=== PATIENT | female | born 1950 | race Caucasian/White ===

== ENCOUNTER 2017-03-29 23:43 | Inpatient (IN) | payer MEDICARE, MEDICAID ==
[~2017-03-29] VITALS: Ht 170.2 cm; Wt 86.2 kg
[~2017-03-29 23:43] MED LIST: AMLO10TA4 PO; CIPR500T6 PO; DOXY100C14 PO; ESOM40CA25 PO; INSU100V13 SQ; LIDO700A4 TP; LISI-334 PO; METF-620 PO
[2017-03-30] MEDS ORDERED: HYDR-971 PO (01:25)
[2017-03-30] MEDS ORDERED: CEPH-264 PO (01:25)
--- NOTE | 2017-03-30 01:25 | PHYS DOC ---
Past Medical History Past Medical History: Diabetes-Type II, GERD, Hypertension, Other Additional Past Medical Histor: heart murmur; seasonal allergies Past Surgical History: Hysterectomy, Other Additional Past Surgical Histo: left foot for DM ulcer. Alcohol Use: None Drug Use: None Adult General Chief Complaint Chief Complaint: FACE PROBLEM HPI HPI Patient is a 66 year old female who presents here today secondary to pain to the left side her face. Patient has a history significant for hypertension diabetes and chronic renal insufficiency. Patient reports that she started having pain to the left side of her face a couple days ago and she thought was secondary to eating too much.. She reports that she'll think that is the cause now because it is fire tender hurts and not getting any better. Patient denies any fevers shakes chills nausea vomiting diarrhea chest pain or shortness of breath. Patient denies any change in vision although she reports she is legally blind. Patient reports she has some pain to her left upper teeth and her incisor region. Patient denies any other symptomatology at this time. Patient's physical exam is remarkable for some mild soft tissue swelling to the left infraorbital/cheek. Patient pupils are equally round and reactive to light extraocular motions were intact. Patient does have dental tenderness in her left upper canine teeth. Patient has diffuse poor dentition. Patient has no molar abscess that palpable. Patient has no gum edema or swelling that is appreciable. Patient does have tenderness to palpation to her sinuses. Assessment and plan this is a 66-year-old female who presents to the ER today secondary to pain to her left cheeks. Patient has tenderness palpation with mild erythema in that area. I suspect this is likely odontogenic in origin. Patient will be started on Keflex and given some pain medicines to assist her. Patient was given a shot of Ancef here in the ER and Dilaudid to initiate her therapy. Patient be discharged home with strict instructions to follow-up with her primary care physician within the next 12-24 hours and to return the ER if she worsens in any way. Review of Systems Review of Systems Constitutional: Denies fever or chills [] Eyes: Denies change in visual acuity, redness, or eye pain [] HENT: Denies nasal congestion or sore throat [] All other review systems are negative except as documented in the history of present illness portion. Current Medications Current Medications Current Medications Medications (Trade) Dose Ordered Sig/Roshan Start Time Stop Time Status Last Admin Dose Admin Cefazolin Sodium (Ancef Im) 1 gm 1X ONCE 03/30/17 02:00 03/30/17 02:01 DC 03/30/17 01:30 1 GM Hydromorphone HCl (Dilaudid) 1 mg 1X ONCE 03/30/17 02:00 03/30/17 02:01 DC 03/30/17 01:29 1 MG Metoclopramide HCl (Reglan) 10 mg 1X ONCE 03/30/17 04:00 03/30/17 04:01 DC 03/30/17 03:25 10 MG Ondansetron HCl (Zofran Odt) 4 mg 1X ONCE 03/30/17 02:30 03/30/17 02:31 DC 03/30/17 02:13 4 MG Ondansetron HCl (Zofran) 4 mg 1X ONCE 03/30/17 05:15 03/30/17 05:16 DC 03/30/17 04:55 4 MG Sodium Chloride 1,000 ml @ 1,000 mls/hr 1X ONCE 03/30/17 04:00 03/30/17 04:59 DC 03/30/17 03:22 1,000 MLS/HR Allergies Allergies Allergies Coded Allergies Type Severity Reaction Last Updated Verified Sulfa (Sulfonamide Antibiotics) Adverse Reaction Intermediate vomiting 07/21/14 No Physical Exam Physical Exam Constitutional: Well developed, well nourished, no acute distress, non-toxic appearance. [] HENT: Normocephalic, atraumatic, bilateral external ears normal, oropharynx moist, no oral exudates, nose normal. See above. [] Eyes: PERRLA, EOMI, conjunctiva normal, no discharge. No periorbital erythema or evidence of periorbital cellulitis. [] Neck: Normal range of motion, no tenderness, supple, no stridor. [] Cardiovascular:Heart rate regular rhythm, no murmur [] Lungs & Thorax: Bilateral breath sounds clear to auscultation [] Abdomen: Bowel sounds normal, soft, no tenderness, no masses, no pulsatile masses. [] Skin: Warm, dry, no erythema, no rash. [] Back: No tenderness, no CVA tenderness. [] Extremities: No tenderness, no cyanosis, no clubbing, status post left foot amputation. Neurologic: Alert and oriented X 3, normal motor function, normal sensory function, no focal deficits noted. [] Psychologic: Affect normal, judgement normal, mood normal. [] Current Patient Data Vital Signs Vital Signs Date Time Temp Pulse Resp B/P (MAP) Pulse Ox O2 Delivery O2 Flow Rate FiO2 03/30/17 01:29 16 Room Air 03/30/17 00:04 98.8 87 205/87 (126) 98 98.8 EKG EKG [] Radiology/Procedures Radiology/Procedures [] Course & Med Decision Making Course & Med Decision Making Pertinent Labs and Imaging studies reviewed. (See chart for details) [] This is a 66-year-old female who presents here today with a facial cellulitis and pain. Patient was given Ancef IM as well as Dilaudid to assist her with her pain IM. Patient has been having persistent vomiting for proximal 5 hours since to given the Dilaudid. Patient be given 3 doses of Zofran as well as Reglan still been vomiting.. Given her persistent emesis and need for antibiotics patient will be admitted to the hospital. Dragon Disclaimer Dragon Disclaimer This electronic medical record was generated, in whole or in part, using a voice recognition dictation system. Departure Departure Impression: Primary Impression: Dental abscess Additional Impressions: Facial cellulitis Intractable vomiting Disposition: ADMITTED INPATIENT Admitting Physician: Other (reusch) Condition: STABLE Referrals: ANNALEE SAUCEDO [employer] (PCP) Patient Instructions: Abscessed Tooth, [id number], Cellulitis Scripts Hydrocodone/Apap 5-325 (NORCO 5-325 TABLET) 1 Each Tablet 1 TAB PO QID Y for PAIN, #10 TAB Prov: GURJIT LENNON MD 03/30/17 Cephalexin (KEFLEX) 500 Mg Capsule 500 MG PO QID for 10 Days, CAP Prov: GURJIT LENNON MD 03/30/17 Problem Qualifiers GURJIT LENNON MD March 30, 2017 01:25
[2017-03-30] MEDS ORDERED: ONDANSETRON ODT 4 MG TAB.RAPDIS. PO ONE ×2 (01:30→02:30)
[2017-03-30] MEDS ORDERED: ceFAZolin IM 1 GM VIAL IM ONE (02:00)
[2017-03-30] MEDS ORDERED: HYDROmorphone 2 MG/ML VIAL IM ONE (02:00)
[2017-03-30] MEDS ORDERED: IV NORMAL SALINE 1000ML BAG 1,000 ML IV ONE (04:00)
[2017-03-30] MEDS ORDERED: METOCLOPRAMIDE HCL 10 MG/2 ML VIAL. IV ONE (04:00)
[2017-03-30] MEDS ORDERED: ONDANSETRON PF 4 MG/2 ML VIAL. IV ONE (05:15)
[2017-03-30] MEDS ORDERED: IV NORMAL SALINE 1000ML BAG 1,000 ML IV SCH (05:36)
[2017-03-30] MEDS ORDERED: ONDANSETRON PF 4 MG/2 ML VIAL. IV PRN ×2 (05:45→08:15)
--- NOTE | 2017-03-30 06:23 | ACF ---
Admission Forms Criteria CELLULITIS Clinical Indications for Admission to Inpatient Care (Place 'X' for any and all applicable criteria): Admission is indicated for ANY ONE of the following(1)(2)(3)(4)(5): [ ]I. Limb-threatening infection [ ]II. High-risk comorbid condition as indicated by ANY ONE of the following: [ ]a) Uncontrolled diabetes (eg, HbA1c greater than 10% (0.1)) [ ]b) Cirrhosis [ ]c) Neutropenia [ ]d) Asplenia [ ]e) Immunosuppression [ ]f) Symptomatic heart failure [X]III. Failure of outpatient therapy as indicated by ALL of the following: [X]a) Progression or no improvement after adequate trial (minimum of 48 hours, with longer period for stable lower extremity infection) [ X]b) Adequate antibiotic regimen as indicated by use of ANY ONE of the following: [X]i) First-generation cephalosporin (e.g., cephalexin) [ ]ii) Antistaphylococcal penicillin (e.g., dicloxacillin) [ ]iii) Penicillin-allergic patient regimen (clindamycin, extended-spectrum fluoroquinolone, or doxycycline) [ ]iv) Resistant organism (eg, methicillin-resistant Staphylococcus aureus) regimen (6) [X]c) Outpatient intravenous therapy regimen is not appropriate due to ANY ONE of the following. (7)(8)(9)(10): [ ]i) It was tried and was not successful (eg, progression of infection). [X]ii) It is not available or cannot be arranged in a clinically appropriate time frame (e.g., the next day). [ ]iii) Clinical presentation (eg, acuity of infection, rapidity of progression, confirmed or suspected bacteremia) is judged to require ALL of the following: [ ]1) Immediate initiation of intravenous therapy ( eg, cannot wait for next day) [ ]2) Intensity of patient monitoring and observation (eg, vital sign measurement, checks for infection progression) that cannot be provided at other than inpatient level of care [ ]IV. Mental status changes [ ]V. Bacteremia [ ]. Hemodynamic instability [ ]VII. Suspected necrotizing soft tissue infection (e.g., gas in tissue)(11)( 12) [ ]VIII. Orbital infection (13)(14) [ ]IX. Associated surgical procedure (e.g., abscess drainage, debridement) not amenable to outpatient, emergency department, or observation care [ ]X. Cutaneous gangrene [ ]XI. High fever (temperature greater than 39.5 degrees C (103.1 degrees F) (oral)) not responsive to outpatient, emergency department, or observation care therapy [ ]XIII. Inpatient admission required rather than observation care (Also use Cellulitis: Observation Care as appropriate) because of ANY ONE of the following : [ ]a) Periorbital or perineal infection that is severe or worsening [ ]b) Severe pain requiring acute inpatient management [ ]c) IV fluid to replace significant ongoing (e.g., for over 24 hours) losses (greater than 3L/m2 per day) [ ]d) Compartment syndrome monitoring (17) [ ]e) Strict or protective (eg, laminar flow) isolation [ ]f) Urgent debridement or skin grafting [ ]g) Bone or joint debridement [ ]h) Immediate inpatient surgery [ ]i) Other condition, treatment or monitoring requiring inpatient admission Extended stay beyond goal length of stay may be needed for (1)(18): [ ]a) Necrotizing soft tissue infection or fasciitis [ ]b) Gram-negative infection [ ]c) Methicillin-resistant Staphylococcal aureus (MRSA) infection [ ]d) Peripheral venous insufficiency with cellulitis [ ]e) Extensive edema [ ]f) Sepsis or continued Hemodynamic instability [ ]g) Continued high fever or mental status change [ ]h) Bacteremia [ ]i) Active serious comorbid conditions ( eg, heart failure, renal insufficiency) The original [email or web address] content created by [employer] [email or web address] has been revised. The portions of the content which have been revised are identified through the use of italic text or in bold, and [facility] has neither reviewed nor approved the modified material. All other unmodified content is copyright [facility] Please see references footnoted in the original [facility] [employer] edition 2016 Admission Criteria Met?: Yes FERN WOODS March 30, 2017 06:23
[2017-03-30 06:28] VITALS: BP 229/124
[2017-03-30] MEDS ORDERED: amLODIPine BESYLATE 5 MG TABLET PO ONE (06:30)
[2017-03-30] MEDS ORDERED: LISINOPRIL 10 MG TABLET PO ONE (06:30)
[2017-03-30 07:00] VITALS: BP 147/88
[2017-03-30] MEDS ORDERED: diphenhydrAMINE 50 MG/ML VIAL IVP ONE (07:00)
[2017-03-30] MEDS ORDERED: hydrALAZINE 20 MG/ML VIAL. IVP ONE (07:00)
[2017-03-30] MEDS ORDERED: PROCHLORPERAZINE 10 MG/2 ML VIAL. IV ONE (07:00)
--- NOTE | 2017-03-30 08:10 | PDOC1 ---
History and Physical Date of Admission Date of Admission DATE: 03/30/17 TIME: 08:10 Identification/Chief Complaint Chief Complaint facial swelling Problems: Source Source: Chart review, Patient History of Present Illness History of Present Illness Ms. Bauer, is a 66 year old female admit for cellulitis and pain to the left side her face. That appears much improved this AM but she is nauseated and is vomiting too much to even talk to me early this AM, Patient has a history significant for hypertension diabetes and chronic renal insufficiency. She started having pain to the left side of her face a couple days ago and she thought was secondary to eating too much. She had some teeth pain the is now improved, 2/10 left nostril still red and tender, but swelling of face is almost resolve,d minor pain she is legally blind in the left eye. Past Medical History Cardiovascular: HTN Renal/: Chronic renal insuff Endocrine: Diabetes Past Surgical History Past Surgical History: Hysterectomy Family History Family History: Hypertension Social History Smoke: No ALCOHOL: none Drugs: None Current Problem List Problem List Problems Medical Problems: (1) Dental abscess Status: Acute (2) Facial cellulitis Status: Acute (3) Intractable vomiting Status: Acute Problems: Current Medications Current Medications Current Medications Cefazolin Sodium (Ancef Im) 1 gm 1X ONCE IM Last administered on 03/30/17 01: 30; Start 03/30/17 at 02:00; Stop 03/30/17 at 02:01; Status DC Hydromorphone HCl (Dilaudid) 1 mg 1X ONCE IM Last administered on 03/30/17 01 :29; Start 03/30/17 at 02:00; Stop 03/30/17 at 02:01; Status DC Ondansetron HCl (Zofran Odt) 4 mg 1X ONCE PO Last administered on 03/30/17 01 :29; Start 03/30/17 at 01:30; Stop 03/30/17 at 01:31; Status DC Ondansetron HCl (Zofran Odt) 4 mg 1X ONCE PO Last administered on 03/30/17 02 :13; Start 03/30/17 at 02:30; Stop 03/30/17 at 02:31; Status DC Metoclopramide HCl (Reglan) 10 mg 1X ONCE IV Last administered on 03/30/17 03 :25; Start 03/30/17 at 04:00; Stop 03/30/17 at 04:01; Status DC Sodium Chloride 1,000 ml @ 1,000 mls/hr 1X ONCE IV Last administered on 03:22; Start 03/30/17 at 04:00; Stop 03/30/17 at 04:59; Status DC Ondansetron HCl (Zofran) 4 mg 1X ONCE IV Last administered on 03/30/17 04:55 ; Start 03/30/17 at 05:15; Stop 03/30/17 at 05:16; Status DC Ondansetron HCl (Zofran) 4 mg PRN Q4HRS PRN IV NAUSEA/VOMITING; Start 03/30/17 at 05:45; Stop 03/31/17 at 05:44 Sodium Chloride 1,000 ml @ 100 mls/hr Q10H IV Last administered on 03/30/17 07:27; Start 03/30/17 at 05:36; Stop 03/31/17 at 05:35 Cefazolin Sodium 1 gm/Sodium Chloride 50 ml @ 100 mls/hr Q8HRS IV Last administered on 03/30/17 07:26; Start 03/30/17 at 06:00 Amlodipine Besylate (Norvasc) 10 mg 1X ONCE PO ; Start 03/30/17 at 06:30; Stop 03/30/17 at 06:31; Status DC Lisinopril (Prinivil) 20 mg 1X ONCE PO ; Start 03/30/17 at 06:30; Stop at 06:31; Status DC Hydralazine HCl (Apresoline) 5 mg 1X ONCE IVP ; Start 03/30/17 at 07:00; Stop 03/30/17 at 07:01; Status DC Diphenhydramine HCl (Benadryl) 25 mg 1X ONCE IVP ; Start 03/30/17 at 07:00; Stop 03/30/17 at 07:01; Status DC Prochlorperazine Edisylate (Compazine) 10 mg 1X ONCE IV ; Start 03/30/17 at 07: 00; Stop 03/30/17 at 07:01; Status DC Active Scripts Active [place] 5-325 Tablet (Acetaminophen/Hydrocodone Bitart) 1 Each Tablet 1 Tab PO QID PRN Keflex (Cephalexin) 500 Mg Capsule 500 Mg PO QID 10 Days Reported Ciprofloxacin Er 500 Mg Tablet (Ciprofloxacin/Ciprofloxa Hcl) 500 Mg Tbmp.24hr 500 Mg PO BID Lidoderm (Lidocaine) 700 Mg Adh..patch 1 Patch TP DAILY Doxycycline Monohydrate 100 Mg Capsule 100 Mg PO Norvasc (Amlodipine Besylate) 10 Mg Tablet 1 Tab PO DAILY Lisinopril 20 Mg Tablet 1 Tab PO DAILY Metformin Hcl 1,000 Mg Tablet 1 Tab PO BID Esomeprazole Capsule (Esomeprazole Strontium) 40 Mg Capsule.dr 40 Mg PO DAILYAC Levemir (Insulin Detemir) 100 Unit/1 Ml Vial 45 Unit SQ Allergies Allergies: Coded Allergies: Sulfa (Sulfonamide Antibiotics) (Unverified Adverse Reaction, Intermediate , vomiting, 07/21/14) ROS General: YES: Fatigue, Malaise, Appetite, No: Chills, Night Sweats, Other PSYCHOLOGICAL ROS: No: Anxiety, Behavioral Disorder, Concentration difficultie , Decreased libido, Depression, Disorientation, Hallucinations, Hostility, Irritablity, Memory difficulties, Mood Swings, Obsessive thoughts, Physical abuse, Sexual abuse, Sleep disturbances, Suicidal ideation, Other Eyes: Yes Decreased vision, Yes Uses contacts, No Blurry vision, No Double vision, No Dry eyes, No Excessive tearing, No Eye Pain, No Itchy Eyes, No Loss of vision, No Photophobia, No Scotomata, No Uses glasses, No Other HEENT: YES: Heacaches, Nasal congestion, Sinus pain, No: Visual Changes, Hearing change, Nasal discharge, Oral lesions, Sore Throat, Epistaxis, Sneezing, Snoring, Tinnitus, Vertigo, Vocal changes, Other Respiratory: No: Cough, Hemoptysis, Orthopnea, Pleuritic Pain, Shortness of breath, SOB with excertion, Sputum Changes, Stridor, Tachypnea, Wheezing, Other Cardiovascular: No Chest Pain, No Palpitations, No Orthopnea, No Paroxysmal Noc. Dyspnea, No Edema, No Lt Headedness, No Other Gastrointestinal: Yes Nausea, Yes Vomiting, Yes Abdominal Pain Genitourinary: No Dysuria, No Frequency, No Incontinence, No Hematuria, No Retention, No Discharge, No Urgency, No Pain, No Flank Pain, No Other, No , No , No , No , No , No , No Musculoskeletal: No Gait Disturbance, No Joint Pain, No Joint Stiffness, No Joint Swelling, No Muscle Pain, No Muscular Weakness, No Pain In:, No Swelling In:, No Other Neurological: No Behavorial Changes, No Bowel/Bladder ControlChng, No Confusion , No Dizziness, No Gait Disturbance, No Headaches, No Impaired Coord/balance, No Memory Loss, No Numbness/Tingling, No Seizures, No Speech Problems, No Tremors, No Visual Changes, No Weakness, No Other Skin: No Dry Skin, No Eczema, No Hair Changes, No Lumps, No Mole Changes, No Mottling, No Nail Changes, No Pruritus, No Rash, No Skin Lesion Changes, No Other, No Acne Physical Exam Physical Exam Patient's physical exam was remarkable for some mild soft tissue swelling to the left infraorbital/cheek. General: Alert, Oriented X3, Cooperative, mild distress HEENT: Atraumatic, EOMI, Other (dry) Lungs: Clear to auscultation, Normal air movement Abdomen: Normal bowel sounds, Soft Rectal Exam: not examined Extremities: Normal pulses, Other (2+ LE edema) Neuro: Normal speech Psych/Mental Status: Mental status NL Vitals Vitals Vital Signs Date Time Temp Pulse Resp B/P (MAP) Pulse Ox O2 Delivery O2 Flow Rate FiO2 03/30/17 07:00 131 147/88 03/30/17 06:28 97.7 20 96 Room Air 97.7 VTE Prophylaxis Ordered VTE Prophylaxis Devices: No VTE Pharmacological Prophylaxi: Yes Assessment/Plan Assessment/Plan facial cellulitis and sinusitis, much improved overnight with IV cephalosporin , cont nausea and vomiting, dehdration, vasomotor nephropathy on CKD anemia of CKD DM2, poor control, check A1c, FSBS > 400, LE edema, poss. CHF, check echo, renal consulted severe malnutrition, serum albumin 1.7, w/ BMI 30 poss. renal protein loss, check UA, consider 24 hour, renal to follow ZULEYMA BRUCE MD March 30, 2017 08:10
[2017-03-30] MEDS ORDERED: MECLIZINE HCL 12.5 MG TABLET. PO PRN (08:15)
[2017-03-30] MEDS ORDERED: ATOR20TA58 PO (08:28)
[2017-03-30] MEDS ORDERED: MECL12.52 PO (08:28)
[2017-03-30] MEDS ORDERED: CITA20TA5 PO (08:28)
[2017-03-30] MEDS ORDERED: HYDR-2869 PO (08:28)
[2017-03-30] MEDS ORDERED: PRED1DRO OU (08:28)
[2017-03-30] MEDS ORDERED: BRIM5DRO2 OS (08:28)
[2017-03-30] MEDS ORDERED: INSU100V13 SQ (08:28)
[2017-03-30] MEDS ORDERED: METF500T9 PO (08:28)
[2017-03-30] MEDS ORDERED: PREG20SO PO (08:28)
[2017-03-30] MEDS ORDERED: INSU100I17 SQ (08:28)
[2017-03-30] MEDS ORDERED: NITR100C62 PO (08:32)
[2017-03-30] MEDS ORDERED: FURO40TA4 PO (08:32)
[2017-03-30] MEDS ORDERED: metFORMIN XR 500 MG TAB.ER.24H PO SCH (09:00)
[2017-03-30] MEDS: LISINOPRIL 20 MG TABLET PO SCH (09:00)
[2017-03-30] MEDS: amLODIPine BESYLATE 10 MG TABLET PO SCH (09:00)
[2017-03-30 09:15] LABS: BASO # 0.1 x10^3/uL (0.0-0.2); BASO % 1 % (0-3); EOS % 0 % (0-3); HEMATOCRIT 25.6 % (36.0-47.0); HEMOGLOBIN 8.6 g/dL (12.0-15.5); LYMPH # 0.9 x10^3/uL (1.0-4.8); LYMPH % 10 % (24-48); MEAN CORPUSCULAR HEMOGLOBIN 30 pg (25-35); MEAN CORPUSCULAR HGB CONC 34 g/dL (31-37); MEAN CORPUSCULAR VOLUME 89 fL (79-100); MONO % 3 % (0-9); NEUT % 86 % (31-73); PLATELET COUNT 190 x10^3/uL (140-400); RED BLOOD COUNT 2.89 x10^6/uL (3.50-5.40); RED CELL DISTRIBUTION WIDTH 13.6 % (11.5-14.5); WHITE BLOOD COUNT 9.3 x10^3/uL (4.0-11.0)
[2017-03-30] MEDS ORDERED: DEXTROSE 50% 25 GM / 50ML DISP.SYRIN. IV PRN (09:15)
[2017-03-30 09:29] LABS: ALBUMIN 1.7 g/dL (3.4-5.0); ALBUMIN/GLOBULIN RATIO 0.4 (1.0-1.7); CALCIUM 7.6 mg/dL (8.5-10.1); CREATININE 2.5 mg/dL (0.6-1.0); GFR 19.4; POTASSIUM 3.8 mmol/L (3.5-5.1); TOTAL BILIRUBIN 0.2 mg/dL (0.2-1.0); TOTAL PROTEIN 5.6 g/dL (6.4-8.2)
[2017-03-30] MEDS: PREGABALIN 50 MG CAPSULE PO SCH ×2 (09:45→12:13)
[2017-03-30] MEDS: IV NORMAL SALINE 1000ML BAG 1,000 ML IV SCH ×2 (09:49→19:15)
[2017-03-30] MEDS: CITALOPRAM 20 MG TABLET. PO SCH (09:49)
[2017-03-30] MEDS: INSULIN ASPART 300 UNITS/3 ML INSULN.PEN SQ SCH ×4 (10:07→16:30)
--- NOTE | 2017-03-30 10:33 | PDOC ---
Infectious Disease Note ROS ROS Vital Sign Vital Signs Vital Signs Date Time Temp Pulse Resp B/P (MAP) Pulse Ox O2 Delivery O2 Flow Rate FiO2 03/30/17 09:49 131 147/88 03/30/17 07:00 97.3 16 90 Room Air 97.3 Labs Lab Laboratory Tests Test 03/30/17 08:55 03/30/17 09:06 White Blood Count 9.3 x10^3/uL (4.0-11.0) Red Blood Count 2.89 x10^6/uL (3.50-5.40) Hemoglobin 8.6 g/dL (12.0-15.5) Hematocrit 25.6 % (36.0-47.0) Mean Corpuscular Volume 89 fL (79-100) Mean Corpuscular Hemoglobin 30 pg (25-35) Mean Corpuscular Hemoglobin Concent 34 g/dL (31-37) Red Cell Distribution Width 13.6 % (11.5-14.5) Platelet Count 190 x10^3/uL (140-400) Neutrophils (%) (Auto) 86 % (31-73) Lymphocytes (%) (Auto) 10 % (24-48) Monocytes (%) (Auto) 3 % (0-9) Eosinophils (%) (Auto) 0 % (0-3) Basophils (%) (Auto) 1 % (0-3) Neutrophils # (Auto) 8.0 x10^3uL (1.8-7.7) Lymphocytes # (Auto) 0.9 x10^3/uL (1.0-4.8) Monocytes # (Auto) 0.3 x10^3/uL (0.0-1.1) Eosinophils # (Auto) 0.0 x10^3/uL (0.0-0.7) Basophils # (Auto) 0.1 x10^3/uL (0.0-0.2) Sodium Level 140 mmol/L (136-145) Potassium Level 3.8 mmol/L (3.5-5.1) Chloride Level 106 mmol/L (98-107) Carbon Dioxide Level 22 mmol/L (21-32) Anion Gap 12 (6-14) Blood Urea Nitrogen 37 mg/dL (7-20) Creatinine 2.5 mg/dL (0.6-1.0) Estimated GFR (Cockcroft-Gault) 19.4 BUN/Creatinine Ratio 15 (6-20) Glucose Level 446 mg/dL (70-99) Calcium Level 7.6 mg/dL (8.5-10.1) Total Bilirubin 0.2 mg/dL (0.2-1.0) Aspartate Amino Transf (AST/SGOT) 17 U/L (15-37) Alanine Aminotransferase (ALT/SGPT) 14 U/L (14-59) Alkaline Phosphatase 109 U/L (46-116) Total Protein 5.6 g/dL (6.4-8.2) Albumin 1.7 g/dL (3.4-5.0) Albumin/Globulin Ratio 0.4 (1.0-1.7) Glucose (Fingerstick) 425 mg/dL (70-99) Objective Assessment Facial Cellulitis Poor dentition Sinusitis Sulfa allergy CKD DM - not controlled yet but just admitted S/p CVA 2 weeks ago Plan Plan of Care Po Augmentin D/c chronic nitrofurantoin as with CKD it does not achieve adequate levels F/u response/labs # [id number] HAKEEM MEDRANO MD March 30, 2017 10:33
[2017-03-30] MEDS ORDERED: MAGNESIUM SULFATE 2GM 50 ML IV PRN (10:45)
--- NOTE | 2017-03-30 10:57 | PDOC2 ---
CONSULT Date of Consult Date of Consult DATE: 03/30/17 TIME: 10:36 Reason for Consult Reason for Consult: MYAH/ CKD III? Referring Physician Referring Physician: Dr Parks Identification/Chief Complaint Chief Complaint facial swelling and Pain (? Celluliits) Problems: Source Source: Chart review, Patient History of Present Illness Reason for Visit: as dictated Past Medical History Cardiovascular: HTN Renal/: Chronic renal insuff Endocrine: Diabetes Past Surgical History Past Surgical History: Hysterectomy Family History Family History: Hypertension Social History No ALCOHOL: none Drugs: None Lives: with Family Current Problem List Problem List Problems Medical Problems: (1) Dental abscess Status: Acute (2) Facial cellulitis Status: Acute (3) Intractable vomiting Status: Acute Current Medications Current Medications Current Medications Cefazolin Sodium (Ancef Im) 1 gm 1X ONCE IM Last administered on 03/30/17 01: 30; Start 03/30/17 at 02:00; Stop 03/30/17 at 02:01; Status DC Hydromorphone HCl (Dilaudid) 1 mg 1X ONCE IM Last administered on 03/30/17 01 :29; Start 03/30/17 at 02:00; Stop 03/30/17 at 02:01; Status DC Ondansetron HCl (Zofran Odt) 4 mg 1X ONCE PO Last administered on 03/30/17 01 :29; Start 03/30/17 at 01:30; Stop 03/30/17 at 01:31; Status DC Ondansetron HCl (Zofran Odt) 4 mg 1X ONCE PO Last administered on 03/30/17 02 :13; Start 03/30/17 at 02:30; Stop 03/30/17 at 02:31; Status DC Metoclopramide HCl (Reglan) 10 mg 1X ONCE IV Last administered on 03/30/17 03 :25; Start 03/30/17 at 04:00; Stop 03/30/17 at 04:01; Status DC Sodium Chloride 1,000 ml @ 1,000 mls/hr 1X ONCE IV Last administered on 03:22; Start 03/30/17 at 04:00; Stop 03/30/17 at 04:59; Status DC Ondansetron HCl (Zofran) 4 mg 1X ONCE IV Last administered on 03/30/17 04:55 ; Start 03/30/17 at 05:15; Stop 03/30/17 at 05:16; Status DC Ondansetron HCl (Zofran) 4 mg PRN Q4HRS PRN IV NAUSEA/VOMITING; Start 03/30/17 at 05:45; Stop 03/31/17 at 05:44 Sodium Chloride 1,000 ml @ 100 mls/hr Q10H IV Last administered on 03/30/17 07:27; Start 03/30/17 at 05:36; Stop 03/31/17 at 05:35 Cefazolin Sodium 1 gm/Sodium Chloride 50 ml @ 100 mls/hr Q8HRS IV Last administered on 03/30/17 07:26; Start 03/30/17 at 06:00; Stop 03/30/17 at 10:24 ; Status DC Amlodipine Besylate (Norvasc) 10 mg 1X ONCE PO Last administered on 03/30/17 08:15; Start 03/30/17 at 06:30; Stop 03/30/17 at 06:31; Status DC Lisinopril (Prinivil) 20 mg 1X ONCE PO Last administered on 03/30/17 08:13; Start 03/30/17 at 06:30; Stop 03/30/17 at 06:31; Status DC Hydralazine HCl (Apresoline) 5 mg 1X ONCE IVP ; Start 03/30/17 at 07:00; Stop 03/30/17 at 07:01; Status DC Diphenhydramine HCl (Benadryl) 25 mg 1X ONCE IVP Last administered on 08:16; Start 03/30/17 at 07:00; Stop 03/30/17 at 07:01; Status DC Prochlorperazine Edisylate (Compazine) 10 mg 1X ONCE IV Last administered on 08:15; Start 03/30/17 at 07:00; Stop 03/30/17 at 07:01; Status DC Ondansetron HCl (Zofran) 8 mg PRN Q8HRS PRN IV NAUSEA/VOMITING; Start 03/30/17 at 08:15 Amlodipine Besylate (Norvasc) 10 mg DAILY PO ; Start 03/30/17 at 09:00 Atorvastatin Calcium (Lipitor) 20 mg HS PO ; Start 03/30/17 at 21:00 Citalopram Hydrobromide (CeleXA) 20 mg DAILY PO Last administered on 03/30/17 09:49; Start 03/30/17 at 09:00 Hydralazine HCl (Apresoline) 50 mg TID PO Last administered on 03/30/17 09:49 ; Start 03/30/17 at 09:00 Insulin Aspart (NovoLOG) 12 units TIDAC SQ Last administered on 03/30/17 10:07 ; Start 03/30/17 at 11:30 Lisinopril (Prinivil) 20 mg DAILY PO ; Start 03/30/17 at 09:00 Meclizine HCl (Antivert) 12.5 mg PRN TID PRN PO NAUSEA; Start 03/30/17 at 08:15 Metformin HCl (Glucophage Xr) 500 mg DAILYWBKFT PO ; Start 03/30/17 at 09:00; Stop 03/30/17 at 09:47; Status DC Brimonidine Tartrate (Alphagan) 1 drop BID OS ; Start 03/30/17 at 10:00 Insulin Detemir (Levemir) 24 units QHS SQ ; Start 03/30/17 at 21:00 Dexamethasone (Maxidex) 1 drop PRN QID PRN OU Swollen eyes; Start 03/30/17 at 10:00 Pregabalin (Lyrica) 100 mg BID PO Last administered on 03/30/17 09:45; Start 03/30/17 at 09:00 Sodium Chloride 1,000 ml @ 100 mls/hr Q10H IV Last administered on 03/30/17 09:49; Start 03/30/17 at 09:15 Insulin Aspart (NovoLOG) 0-9 UNITS TIDWMEALS SQ Last administered on 03/30/17 10:08; Start 03/30/17 at 12:00 Dextrose (Dextrose 50%-Water Syringe) 12.5 gm PRN Q15MIN PRN IV SEE COMMENTS; Start 03/30/17 at 09:15 Enoxaparin Sodium (Lovenox Per Pharmacy Prophylaxis Dosing) 1 each PRN DAILY PRN MC SEE COMMENTS; Start 03/30/17 at 10:00 Timolol Maleate (Timoptic 0.5% [facility]) 1 drop BID OS ; Start 03/30/17 at 10:00 Enoxaparin Sodium (Lovenox 30mg Syringe) 30 mg Q24H SQ ; Start 03/30/17 at 11:00 Amoxicillin/ Clavulanate Potassium (Augmentin 500/ 125mg) 1 tab BID PO ; Start 03/30/17 at 11:00 Active Scripts Active [place] 5-325 Tablet (Acetaminophen/Hydrocodone Bitart) 1 Each Tablet 1 Tab PO QID PRN Keflex (Cephalexin) 500 Mg Capsule 500 Mg PO QID 10 Days Reported Furosemide 40 Mg Tablet 40 Mg PO DAILY Macrobid 100 Mg Capsule (Nitrofurantoin Monohyd/M-Cryst) 100 Mg Capsule 100 Mg PO HS Lyrica (Pregabalin) 20 Mg/1 Ml Solution 100 Mg PO BID 30 Days Metformin Hcl Er (Metformin Hcl) 500 Mg Tab.er.24h 500 Mg PO DAILYWBKFT Combigan Eye Drops (Brimonidine Tartrate/Timolol) 5 Ml Drops 5 Ml OS BID Hydralazine Hcl 50 Mg Tablet 1 Tab PO TID Citalopram Hbr (Citalopram Hydrobromide) 20 Mg Tablet 1 Tab PO DAILY Pred Forte (Prednisolone Acetate) 1 Ml Drops.susp 1 Drop OU QID PRN Novolog Flexpen (Insulin Aspart) 100 Unit/1 Ml Insuln.pen 12 Unit SQ TIDAC Meclizine Hcl 12.5 Mg Tablet 1 Tab PO TID PRN Atorvastatin Calcium 20 Mg Tablet 20 Mg PO HS Levemir (Insulin Detemir) 100 Unit/1 Ml Vial 24 Unit SQ HS Norvasc (Amlodipine Besylate) 10 Mg Tablet 1 Tab PO DAILY Lisinopril 20 Mg Tablet 1 Tab PO DAILY Allergies Allergies: Coded Allergies: Sulfa (Sulfonamide Antibiotics) (Unverified Adverse Reaction, Intermediate , vomiting, 07/21/14) ROS Review of System GEN: no Fevers no Chills EYES: no new Visual Complaints (legally blind) ENT: no EN Drainage no Hearing deficiets + Facial Pain CVS: no Orthopnea no CP RESP: no SOB no PETER GI: min Nausea (currently) + Vomiting : no Dysuria no Urgency HEME: no easy bruising no Palp Ly Nodes NEURO no Focal Weakness no Sz PSYCH: no Suicidal Ideation + Depression SKIN: no Rashes ENDO: no Polyuria or Polydipsia no Hot/Cold Intolerance MU SK: no Arthraigia no Myalgia Physical Exam Physical Exam General Appearance: Awake Alert Oriented x 3 In no Distress Eyes: Ch Blindness (legal) Conjunctiva Normal EN: No EN Drainage Mucous Memb. moist Neck: no JVD min JVP Supple no Thyromegaly CVS: S1 S2 + Murmur No Gallop No Rub +2 Edema Resp: no Rales no Rhonchi no Acc. Muscle use GI: BAS +ve NO Bruit Non Tender Non Distended; Obese : no CVA tenderness; no Suprapubic Tenderness SKIN: no visible Rashes Breast Exam deferred Mu.Sk: Adequate ROM no Muscle Atrophy Heme: Unable to palpate Obvious LAD no palp Splenomegaly NEURO: Good Strength and Tone Cranial Nerves II - XII grossly intact Psych: + Depressed no Active hallucination Vital Signs Vital Signs Date Time Temp Pulse Resp B/P (MAP) Pulse Ox O2 Delivery O2 Flow Rate FiO2 03/30/17 09:49 131 147/88 03/30/17 07:00 97.3 16 90 Room Air 97.3 Assessment & Plan MYAH - ? due to infection and or due to recent NSAID use for facial pain. Current FLuid and E-lyte status does not necessitate emergent need for Dialysis. 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 for hgb < 7 sev HTN: (OA) - now better controlled. Current BP meds reviewed. See orders for changes. Bone & Mineral: Check PTH etc Edema - suspect due to Low Alb, check Hepatitis panel too; ECHO? DM-2 with roasterman insulin use - with DR (high likelihood of DM-2 Nephropathy ) Labs Labs Laboratory Tests Test 03/30/17 08:55 03/30/17 09:06 White Blood Count 9.3 x10^3/uL (4.0-11.0) Red Blood Count 2.89 x10^6/uL (3.50-5.40) Hemoglobin 8.6 g/dL (12.0-15.5) Hematocrit 25.6 % (36.0-47.0) Mean Corpuscular Volume 89 fL (79-100) Mean Corpuscular Hemoglobin 30 pg (25-35) Mean Corpuscular Hemoglobin Concent 34 g/dL (31-37) Red Cell Distribution Width 13.6 % (11.5-14.5) Platelet Count 190 x10^3/uL (140-400) Neutrophils (%) (Auto) 86 % (31-73) Lymphocytes (%) (Auto) 10 % (24-48) Monocytes (%) (Auto) 3 % (0-9) Eosinophils (%) (Auto) 0 % (0-3) Basophils (%) (Auto) 1 % (0-3) Neutrophils # (Auto) 8.0 x10^3uL (1.8-7.7) Lymphocytes # (Auto) 0.9 x10^3/uL (1.0-4.8) Monocytes # (Auto) 0.3 x10^3/uL (0.0-1.1) Eosinophils # (Auto) 0.0 x10^3/uL (0.0-0.7) Basophils # (Auto) 0.1 x10^3/uL (0.0-0.2) Sodium Level 140 mmol/L (136-145) Potassium Level 3.8 mmol/L (3.5-5.1) Chloride Level 106 mmol/L (98-107) Carbon Dioxide Level 22 mmol/L (21-32) Anion Gap 12 (6-14) Blood Urea Nitrogen 37 mg/dL (7-20) Creatinine 2.5 mg/dL (0.6-1.0) Estimated GFR (Cockcroft-Gault) 19.4 BUN/Creatinine Ratio 15 (6-20) Glucose Level 446 mg/dL (70-99) Calcium Level 7.6 mg/dL (8.5-10.1) Total Bilirubin 0.2 mg/dL (0.2-1.0) Aspartate Amino Transf (AST/SGOT) 17 U/L (15-37) Alanine Aminotransferase (ALT/SGPT) 14 U/L (14-59) Alkaline Phosphatase 109 U/L (46-116) Total Protein 5.6 g/dL (6.4-8.2) Albumin 1.7 g/dL (3.4-5.0) Albumin/Globulin Ratio 0.4 (1.0-1.7) Glucose (Fingerstick) 425 mg/dL (70-99) Laboratory Tests Test 03/30/17 08:55 03/30/17 09:06 White Blood Count 9.3 x10^3/uL (4.0-11.0) Red Blood Count 2.89 x10^6/uL (3.50-5.40) Hemoglobin 8.6 g/dL (12.0-15.5) Hematocrit 25.6 % (36.0-47.0) Mean Corpuscular Volume 89 fL (79-100) Mean Corpuscular Hemoglobin 30 pg (25-35) Mean Corpuscular Hemoglobin Concent 34 g/dL (31-37) Red Cell Distribution Width 13.6 % (11.5-14.5) Platelet Count 190 x10^3/uL (140-400) Neutrophils (%) (Auto) 86 % (31-73) Lymphocytes (%) (Auto) 10 % (24-48) Monocytes (%) (Auto) 3 % (0-9) Eosinophils (%) (Auto) 0 % (0-3) Basophils (%) (Auto) 1 % (0-3) Neutrophils # (Auto) 8.0 x10^3uL (1.8-7.7) Lymphocytes # (Auto) 0.9 x10^3/uL (1.0-4.8) Monocytes # (Auto) 0.3 x10^3/uL (0.0-1.1) Eosinophils # (Auto) 0.0 x10^3/uL (0.0-0.7) Basophils # (Auto) 0.1 x10^3/uL (0.0-0.2) Sodium Level 140 mmol/L (136-145) Potassium Level 3.8 mmol/L (3.5-5.1) Chloride Level 106 mmol/L (98-107) Carbon Dioxide Level 22 mmol/L (21-32) Anion Gap 12 (6-14) Blood Urea Nitrogen 37 mg/dL (7-20) Creatinine 2.5 mg/dL (0.6-1.0) Estimated GFR (Cockcroft-Gault) 19.4 BUN/Creatinine Ratio 15 (6-20) Glucose Level 446 mg/dL (70-99) Calcium Level 7.6 mg/dL (8.5-10.1) Total Bilirubin 0.2 mg/dL (0.2-1.0) Aspartate Amino Transf (AST/SGOT) 17 U/L (15-37) Alanine Aminotransferase (ALT/SGPT) 14 U/L (14-59) Alkaline Phosphatase 109 U/L (46-116) Total Protein 5.6 g/dL (6.4-8.2) Albumin 1.7 g/dL (3.4-5.0) Albumin/Globulin Ratio 0.4 (1.0-1.7) Glucose (Fingerstick) 425 mg/dL (70-99) DAVID REY MD March 30, 2017 10:57
[2017-03-30 11:00] VITALS: BP 171/82
[2017-03-30] MEDS: ENOXAPARIN 30 MG/0.3 ML SYRINGE. SQ SCH (11:00)
[2017-03-30] MEDS: DEXAMETHASONE 0.1% OPHTH SOLUTION 5ML BOTTLE. OU PRN (11:04)
[2017-03-30] MEDS: BRIMONIDINE 0.2% OPHTH SOLUTION 5ML BOTTLE. OS SCH ×2 (11:04→21:25)
[2017-03-30] MEDS: TIMOLOL 0.5% OPHTH SOLUTION 5ML BOTTLE. OS SCH ×2 (11:04→21:25)
--- NOTE | 2017-03-30 11:14 | PDOC2 ---
GI CONSULT Reason For Consult: N/v HPI: HPI: 66 y/o female admitted through the ER for facial cellulitis, also has sinusitis. History from chart, staff, pt. Apparently was at 2 weeks ago for a stroke, also diagnosed w/ CKD. Discharged on medications, hasn't been able to obtain these. ID and nephrology following here. GI asked to see re: n/ v. Apparently had significant symptoms in ER after administration of a medication. Received Reglan and Zofran. Feeling better now although still has some nausea. Also reports a h/o intermittent n/v/reflux improved w/ H2 jas OTC PRN. Recalls previous EGD ~3 years ago (unsure where) w/o significant findings. No abd pain. No diarrhea or constipation. No hematemesis, hematochezia, melena. Good appetite, weight gain. No previous colonoscopy or GES. Note h/o DM, initial glucose >400. Per RN, has multiple allergies, still trying to sort this out. PMH: PMH: legally blind, CVA, HTN, DM, CKD, GERD, depression, left transmetatarsal amputations, hysterectomy FH: Family History: No pertinent hx Social History: Smoke: No ALCOHOL: none Drugs: None ROS: GEN: Denies fevers, chills, sweats HEENT: +legally blind CV: Denies chest pain RESP: Denies shortness of air, cough GI: Per HPI : Denies hematuria, dysuria ENDO: +weight gain NEURO: Denies confusion, dizziness MSK: +weakness SKIN: Denies jaundice, pruritus Vitals: Vitals: Vital Signs Date Time Temp Pulse Resp B/P (MAP) Pulse Ox O2 Delivery O2 Flow Rate FiO2 03/30/17 10:45 Room Air 03/30/17 09:49 131 147/88 03/30/17 07:00 97.3 16 90 97.3 Labs: Labs: Laboratory Tests Test 03/30/17 08:55 03/30/17 09:06 White Blood Count 9.3 x10^3/uL (4.0-11.0) Red Blood Count 2.89 x10^6/uL (3.50-5.40) Hemoglobin 8.6 g/dL (12.0-15.5) Hematocrit 25.6 % (36.0-47.0) Mean Corpuscular Volume 89 fL (79-100) Mean Corpuscular Hemoglobin 30 pg (25-35) Mean Corpuscular Hemoglobin Concent 34 g/dL (31-37) Red Cell Distribution Width 13.6 % (11.5-14.5) Platelet Count 190 x10^3/uL (140-400) Neutrophils (%) (Auto) 86 % (31-73) Lymphocytes (%) (Auto) 10 % (24-48) Monocytes (%) (Auto) 3 % (0-9) Eosinophils (%) (Auto) 0 % (0-3) Basophils (%) (Auto) 1 % (0-3) Neutrophils # (Auto) 8.0 x10^3uL (1.8-7.7) Lymphocytes # (Auto) 0.9 x10^3/uL (1.0-4.8) Monocytes # (Auto) 0.3 x10^3/uL (0.0-1.1) Eosinophils # (Auto) 0.0 x10^3/uL (0.0-0.7) Basophils # (Auto) 0.1 x10^3/uL (0.0-0.2) Sodium Level 140 mmol/L (136-145) Potassium Level 3.8 mmol/L (3.5-5.1) Chloride Level 106 mmol/L (98-107) Carbon Dioxide Level 22 mmol/L (21-32) Anion Gap 12 (6-14) Blood Urea Nitrogen 37 mg/dL (7-20) Creatinine 2.5 mg/dL (0.6-1.0) Estimated GFR (Cockcroft-Gault) 19.4 BUN/Creatinine Ratio 15 (6-20) Glucose Level 446 mg/dL (70-99) Calcium Level 7.6 mg/dL (8.5-10.1) Total Bilirubin 0.2 mg/dL (0.2-1.0) Aspartate Amino Transf (AST/SGOT) 17 U/L (15-37) Alanine Aminotransferase (ALT/SGPT) 14 U/L (14-59) Alkaline Phosphatase 109 U/L (46-116) Total Protein 5.6 g/dL (6.4-8.2) Albumin 1.7 g/dL (3.4-5.0) Albumin/Globulin Ratio 0.4 (1.0-1.7) Glucose (Fingerstick) 425 mg/dL (70-99) Allergies: Coded Allergies: Sulfa (Sulfonamide Antibiotics) (Unverified Adverse Reaction, Intermediate , vomiting, 07/21/14) Medications: Current Medications Medications (Trade) Dose Ordered Sig/Roshan Route PRN Reason Start Time Stop Time Status Last Admin Dose Admin Cefazolin Sodium (Ancef Im) 1 gm 1X ONCE IM 03/30/17 02:00 03/30/17 02:01 DC 03/30/17 01:30 Hydromorphone HCl (Dilaudid) 1 mg 1X ONCE IM 03/30/17 02:00 03/30/17 02:01 DC 03/30/17 01:29 Ondansetron HCl (Zofran Odt) 4 mg 1X ONCE PO 03/30/17 01:30 03/30/17 01:31 DC 03/30/17 01:29 Ondansetron HCl (Zofran Odt) 4 mg 1X ONCE PO 03/30/17 02:30 03/30/17 02:31 DC 03/30/17 02:13 Metoclopramide HCl (Reglan) 10 mg 1X ONCE IV 03/30/17 04:00 03/30/17 04:01 DC 03/30/17 03:25 Sodium Chloride 1,000 ml @ 1,000 mls/hr 1X ONCE IV 03/30/17 04:00 03/30/17 04:59 DC 03/30/17 03:22 Ondansetron HCl (Zofran) 4 mg 1X ONCE IV 03/30/17 05:15 03/30/17 05:16 DC 03/30/17 04:55 Sodium Chloride 1,000 ml @ 100 mls/hr Q10H IV 03/30/17 05:36 03/31/17 05:35 03/30/17 07:27 Cefazolin Sodium 1 gm/Sodium Chloride 50 ml @ 100 mls/hr Q8HRS IV 03/30/17 06:00 03/30/17 10:24 DC 03/30/17 07:26 Amlodipine Besylate (Norvasc) 10 mg 1X ONCE PO 03/30/17 06:30 03/30/17 06:31 DC 03/30/17 08:15 Lisinopril (Prinivil) 20 mg 1X ONCE PO 03/30/17 06:30 03/30/17 06:31 DC 03/30/17 08:13 Diphenhydramine HCl (Benadryl) 25 mg 1X ONCE IVP 03/30/17 07:00 03/30/17 07:01 DC 03/30/17 08:16 Prochlorperazine Edisylate (Compazine) 10 mg 1X ONCE IV 03/30/17 07:00 03/30/17 07:01 DC 03/30/17 08:15 Citalopram Hydrobromide (CeleXA) 20 mg DAILY PO 03/30/17 09:00 03/30/17 09:49 Hydralazine HCl (Apresoline) 50 mg TID PO 03/30/17 09:00 03/30/17 09:49 Insulin Aspart (NovoLOG) 12 units TIDAC SQ 03/30/17 11:30 03/30/17 10:07 Pregabalin (Lyrica) 100 mg BID PO 03/30/17 09:00 03/30/17 09:45 Sodium Chloride 1,000 ml @ 100 mls/hr Q10H IV 03/30/17 09:15 03/30/17 09:49 Insulin Aspart (NovoLOG) 0-9 UNITS TIDWMEALS SQ 03/30/17 12:00 03/30/17 10:08 Imaging: Imaging: - PE: GEN: NAD HEENT/SKIN: left facial swelling, some erythema - apparently this is improved LUNGS: CTAB anteriorly HEART: RRR ABD: NABS, S/ND/NT EXTREMITY: BLE edema, pitting NEURO/PSYCH: A & O 3 A/P: A/P: N/v, h/o GERD, h/o DM -vomiting in ER after given a med, better now -h/o n/v w/ GERD symptoms, takes H2 jas PRN w/ good response, has had previous EGD -h/o DM, not controlled Facial cellulitis, sinusitis -on Augmentin per ID CKD -per nephrology CRC screen -no previous colonoscopy Anemia -Hgb stable since 2013, normocytic, ?chronic disease/CKD -- N/v ?from med in ER, also seems chronic intermittent symptoms, possibly 2/2 GERD vs poor gastric emptying w/ h/o DM. Continue H2 jas, better control of DM, observe. Check iron studies re: anemia (already ordered by Dr. Serna). Outpt screening colonoscopy recommended. AYLEEN RICE March 30, 2017 11:14
[2017-03-30 11:44] LABS: % SAT IRON 23 % (15-34); IRON,SERUM 36 ug/dL (50-170)
[2017-03-30 11:57] LABS: CREATINE KINASE 70 U/L (26-192); FERRITIN 234 ng/mL (8-252)
[2017-03-30] MEDS: AMOXICILLIN/K CLAV 500/125MG TABLET. PO SCH ×2 (12:14→21:00)
[2017-03-30] MEDS: ACETAMINOPHEN 325 MG TABLET. PO PRN ×2 (12:14→18:53)
[2017-03-30] MEDS: ASPIRIN ENTERIC COATED 325 MG TABLET.DR. PO SCH (12:14)
[2017-03-30 12:15] LABS: PLT ESTIMATE ADEQUATE (ADEQUATE)
--- NOTE | 2017-03-30 12:43 | RAD ---
Examination: Ultrasound kidneys History: History of diabetes, acute kidney disease, chronic renal insufficiency. Comparison: None available Findings: The right kidney measures 11.4 x 5.6 5.1 cm. The left kidney measures 11.9 x4.7 x 5.6 cm. The urinary bladder is distended with a urinary bladder volume of 444 mL. Examination is limited due to patient body habitus. No evidence of hydronephrosis. Impression 1. Limited examination due to patient body habitus. No evidence of hydronephrosis. 2. Distended urinary bladder with urinary bladder volume of 444 mL.
[2017-03-30] MEDS: GABAPENTIN 100 MG CAPSULE. PO SCH ×2 (14:00→21:00)
[2017-03-30 15:00] VITALS: BP 143/68
--- NOTE | 2017-03-30 15:39 | CARD ---
APPROVED REPORT EXAM: Two-dimensional and M-mode echocardiogram with Doppler and color Doppler. Other Information Quality : Good INDICATION Congestive Heart Failure 2D DIMENSIONS RVDd2.2 (2.9-3.5cm)Left Atrium(2D)4.4 (1.6-4.0cm) IVSd1.3 (0.7-1.1cm)Aortic Root(2D)2.7 (2.0-3.7cm) LVDd5.2 (3.9-5.9cm)LVOT Diameter2.1 (1.8-2.4cm) PWd1.3 (0.7-1.1cm)LVDs2.7 (2.5-4.0cm) FS (%) 30.0 %SV103.7 ml LVEF(%)60.0 (>50%) Aortic Valve AoV Peak Brennan.193.9cm/sAoV VTI40.8cm AO Peak GR.15.0mmHgLVOT Peak Brennan.127.1cm/s LVOT VTI 31.93cmAO Mean GR.8mmHg ALIS (VMAX)2.75qa3FUQ (VTI)2.60cm2 Mitral Valve MV E Icjcnxrs01.2cm/sMV DECEL [id number] MV A Flupprwl92.5cm/sMV JPO10um E/A Ratio1.1MVA (PHT)3.48cm2 TDI E/Lateral E'21.4E/Medial E'19.6 Tricuspid Valve TR P. Cxmfhorh140md/sRAP AAVDREWW6kwGg TR Peak Gr.97sgUuJENY40psAp Pulmonary Vein S1 Ggxrqmma96.2cm/sD2 Tltqwngz38.4cm/s LEFT VENTRICLE The left ventricle is normal size. There is mild concentric left ventricular hypertrophy. The left ve ntricular systolic function is normal. The Ejection Fraction is 55-60%. There is normal LV segmental wall motion. Transmitral Doppler flow pattern is Grade I-abnormal relaxation pattern. RIGHT VENTRICLE The right ventricle is normal size. The right ventricular systolic function is normal. ATRIA The left atrium is mildly dilated. The right atrium size is normal. The interatrial septum is intact with no evidence for an atrial septal defect or patent foramen ovale as noted on 2-D or Doppler imagi ng. AORTIC VALVE The aortic valve is calcified but opens well. Doppler and Color Flow revealed no significant aortic r egurgitation. There is no significant aortic valvular stenosis. MITRAL VALVE The mitral valve is normal in structure and function. There is no evidence of mitral valve prolapse. There is no mitral valve stenosis. Doppler and Color-flow revealed trace mitral regurgitation. TRICUSPID VALVE The tricuspid valve is normal in structure and function. Doppler and Color Flow revealed mild tricusp id regurgitation. There is mild-moderate pulmonary hypertension. The PA pressure was estimated at 40 mmHg. There is no tricuspid valve stenosis. PULMONIC VALVE The pulmonary valve is normal in structure and function. Doppler and Color Flow revealed trace pulmon ic valvular regurgitation. There is no pulmonic valvular stenosis. GREAT VESSELS The aortic root is normal in size. The ascending aorta is mildly dilated at 3.3 cm. The IVC is normal in size and collapses >50% with inspiration. PERICARDIAL EFFUSION There is no evidence of significant pericardial effusion. Critical Notification Critical Value: No <Conclusion> The left ventricular systolic function is normal. The Ejection Fraction is 55-60%. There is normal LV segmental wall motion. Transmitral Doppler flow pattern is Grade I-abnormal relaxation pattern. The left atrium is mildly dilated. Trace mitral regurgitation. Mild tricuspid regurgitation. There is mild-moderate pulmonary hypertension. The PA pressure was estimated at 40 mmHg. There is no evidence of significant pericardial effusion.
[2017-03-30 18:29] LABS: BILIRUBIN,URINE NEGATIVE (NEG); GLUCOSE,URINE 500 mg/dL (NEG); NITRITE,URINE NEGATIVE (NEG); PH,URINE 7.5; PROTEIN,URINE >=300 mg/dL (NEG-TRACE); UROBILINOGEN,URINE 0.2 mg/dL (0.2 mg/dL)
[2017-03-30 18:40] LABS: BACTERIA,URINE 0 /HPF (0-FEW); SQUAMOUS EPITHELIAL CELL,UR MOD /LPF
[2017-03-30 19:58] VITALS: BP 140/67
[2017-03-30] MEDS: INSULIN DETEMIR 300 UNITS/3 ML INSULN.PEN. SQ SCH (21:00)
[2017-03-30] MEDS: FAMOTIDINE 20 MG TABLET. PO SCH (21:00)
[2017-03-30] MEDS: ATORVASTATIN CALCIUM 20 MG TABLET PO SCH (21:00)
[2017-03-30 23:26] VITALS: BP 152/68
--- NOTE | 2017-03-31 01:07 | CONS ---
DATE OF CONSULTATION: PRIMARY PHYSICIAN: Dr. Max REASON FOR CONSULTATION: Acute on chronic renal insufficiency. HISTORY OF PRESENT ILLNESS: The patient is a 66-year-old female who is known to be a diabetic for 30 years. She now has diabetic retinopathy and is legally blind. The patient apparently was recently taken off of her metformin since her creatinine was slowly gradually getting worse. She tells me that it was thought that it was affecting her kidney numbers. She is also noted to have blood pressures of 215/101 on presentation, which is now down to 147. She does however remain tachycardic with heart rates running in the 130s-150s. In this setting, we are asked to see her for further evaluation. She had a stroke about 2 weeks ago and was seen at [facility] where she claims that she was kept there for 2 days and then discharged. It is unclear to me if she truly had a stroke since I do not see aspirin or Plavix on her list of home medications. She does not have her home list of medications either with her currently. She knows new medications were started, but she is not sure if lisinopril was one of them. The patient developed pain on left side of her face and presented to the ER for further evaluation. She did take 600 mg t.i.d. of ibuprofen for at least 3-4 doses in total. She presented to the ER for further evaluation and was noted to have a creatinine of 2.5. PAST MEDICAL HISTORY: Significant for: 1. Legal blindness. 2. Macular degeneration. 3. Cataracts. 4. Diabetic retinopathy by patient's report. 5. Possible recent stroke. 6. Heart murmur. 7. Hyperlipidemia. 8. Hypertension. 9. Longstanding diabetes for 30 years with retinopathy and possible nephropathy. 10. Exogenous obesity. 11. Diarrhea, constipation, heartburn, gastroesophageal reflux disease. 12. Hysterectomy. 13. Previous urinary tract infections, occasionally frequent, urinary incontinence. 14. History of back surgery for chronic back pain. 15. Depression. SOCIAL HISTORY: Lives with her boyfriend, nonsmoker, nondrinker currently. FAMILY HISTORY: Positive for diabetes in her mom, hypertension. No kidney problems that she is aware of. For rest of details, please see electronic records. DAVID REY MD DR: FREEDOM/lyle JOB#: [id number] / [id number]
--- NOTE | 2017-03-31 01:44 | CONS ---
DATE OF CONSULTATION: 03/30/2017 PATIENT'S ROOM: 434. REQUESTING PHYSICIAN: Dr. Parks. REASON FOR CONSULTATION: Facial cellulitis. HISTORY OF PRESENT ILLNESS: The patient is a 66-year-old female with longstanding history of diabetes. She states two weeks ago, she was admitted at for a stroke. She had been discharged home. At that time, her metformin was discontinued as she was found to be in acute renal failure. Over the weekend, she began to have some facial discomfort. She denies any trauma to the area, but she states that on Wednesday her face became more swollen and she developed fevers, chills and sweats. She has some sinus congestion and discomfort. She presented to [facility] on the , was found to have a white count of 9.3 with 86% segs. Her creatinine was 2.5. Her glucose was 446. Additionally, she was having nausea, vomiting to the point it was difficult for her to give a history. Currently, she states she is feeling much better. Denies any diarrhea, cramps, dysuria, frequency, urgency and no falls. PAST MEDICAL HISTORY: Positive for diabetes, hypertension, gastroesophageal reflux disease, heart murmur, diabetic foot wounds, history of the above-mentioned CVA as well as chronic kidney disease. She has had an abscess of her right foot. PAST SURGICAL HISTORY: Positive for I and D of that abscess of her right foot as well as a hysterectomy and several other I and Ds of her foot. REVIEW OF SYSTEMS: Otherwise negative except as mentioned above. ALLERGIES: Listed as SULFA which she states causes hives. SOCIAL HISTORY: No alcohol or tobacco. FAMILY HISTORY: Positive for diabetes, hypertension and cancer. CURRENT MEDICATIONS: Include cefazolin, amlodipine, Lipitor, Celexa, hydralazine, insulin, Prinivil, Reglan, Lyrica. Other meds are available and have been reviewed in the chart. PHYSICAL EXAMINATION: VITAL SIGNS: She has been afebrile, temperature 97.3, pulse 131, respirations 16, blood pressure 147/88, satting 90% on room air. CONSTITUTIONAL: She is pleasant. She is cooperative. She is in no acute distress. She is lying in bed. She wears glasses. HEENT: Pupils are equal and reactive. She has normal conjunctivae. Oral cavity, pharynx, she has poor dentition, but no signs of any gross gingivitis. Her facial area is without significant swelling. She does have some mild maxillary tenderness. She does have some areas of mild erythema about the left nostril. NECK: Supple, no JVD. LUNGS: Clear to auscultation. HEART: S1, S2 with a positive murmur. ABDOMEN: Soft, obese, nontender, nondistended, positive bowel sounds. EXTREMITIES: No clubbing, cyanosis or gross edema. SKIN: Warm to touch without signs of rash. NEUROLOGIC: She is nonfocal, moves all her extremities. PSYCHIATRIC: Affect is appropriate. LABORATORY DATA: White count 9.3, hemoglobin 8.6, platelets of 190, neutrophils of 86. Glucose of 446, creatinine of 2.5. Normal liver function study tests. Albumin of 1.7. There are no imaging studies. IMPRESSION: 1. Facial cellulitis. 2. Poor dentition. 3. Sinusitis based on clinical exam. 4. SULFA ALLERGY. 5. Chronic kidney disease. 6. Diabetes, not controlled as of yet, but she just got admitted. 7. Status post cerebrovascular accident 2 weeks ago. RECOMMENDATIONS: We will discontinue the cefazolin. Begin p.o. Augmentin. Discontinue her chronic nitrofurantoin as prescribed by Ollie, her primary care doctor, as with chronic kidney disease, she has not achieved adequate levels for it to be effective. We will follow up response and labs. Dr. Parks, thank you for allowing me to participate in the patient's care. If you have any questions, please do not hesitate to contact me. HAKEEM MEDRANO MD DR: CONRAD/lyle JOB#: [id number] / [id number]
[2017-03-31 03:47] VITALS: BP 171/75
[2017-03-31 05:14] LABS: ALBUMIN 1.6 g/dL (3.4-5.0); CALCIUM 8.3 mg/dL (8.5-10.1); CREATININE 2.9 mg/dL (0.6-1.0); GFR 16.3; PHOSPHORUS 4.8 mg/dL (2.6-4.7); POTASSIUM 3.4 mmol/L (3.5-5.1)
[2017-03-31] MEDS: IV NORMAL SALINE 1000ML BAG 1,000 ML IV SCH (05:30)
[2017-03-31 06:17] LABS: % SAT IRON 33 % (15-34); IRON,SERUM 51 ug/dL (50-170)
[2017-03-31 07:15] VITALS: BP 171/75
[2017-03-31] MEDS: INSULIN ASPART 300 UNITS/3 ML INSULN.PEN SQ SCH ×6 (07:30→18:41)
[2017-03-31] MEDS: ASPIRIN ENTERIC COATED 325 MG TABLET.DR. PO SCH (07:34)
[2017-03-31] MEDS: CITALOPRAM 20 MG TABLET. PO SCH (07:34)
[2017-03-31] MEDS: AMOXICILLIN/K CLAV 500/125MG TABLET. PO SCH ×2 (07:34→21:28)
[2017-03-31] MEDS: PREGABALIN 50 MG CAPSULE PO SCH ×2 (07:35→21:28)
[2017-03-31] MEDS: LISINOPRIL 20 MG TABLET PO SCH ×2 (07:36→13:57)
[2017-03-31] MEDS: amLODIPine BESYLATE 10 MG TABLET PO SCH (07:36)
[2017-03-31] MEDS: ACETAMINOPHEN 325 MG TABLET. PO PRN ×2 (07:37→18:48)
[2017-03-31] MEDS ORDERED: ASPIRIN CHEWABLE 81 MG TABLET. PO SCH (08:00)
[2017-03-31] MEDS: TIMOLOL 0.5% OPHTH SOLUTION 5ML BOTTLE. OS SCH ×2 (08:10→21:36)
[2017-03-31] MEDS: DEXAMETHASONE 0.1% OPHTH SOLUTION 5ML BOTTLE. OU PRN (08:11)
[2017-03-31] MEDS: BRIMONIDINE 0.2% OPHTH SOLUTION 5ML BOTTLE. OS SCH ×2 (08:11→21:36)
[2017-03-31] MEDS ORDERED: POTASSIUM CHLORIDE 20 MEQ TABLET.ER. PO ONE ×2 (09:00→11:30)
[2017-03-31] MEDS ORDERED: MAGNESIUM SULFATE 1GM 100 ML IV ONE (09:00)
--- NOTE | 2017-03-31 09:55 | PDOC ---
Subjective: Subjective: No GI complaints - no recurrence of abd pain. Tired. Objective: Objective: Per RN - orders to advance diet to ADA. Vital Signs: Vital Signs Date Time Temp Pulse Resp B/P (MAP) Pulse Ox O2 Delivery O2 Flow Rate FiO2 03/31/17 07:36 84 171/75 03/31/17 07:15 99.3 18 88 Room Air 99.3 Labs: Laboratory Tests Test 03/30/17 11:15 03/30/17 12:05 03/30/17 16:48 03/30/17 17:50 Reticulocyte Count (auto) 1.5 % Iron Level 36 ug/dL Total Iron Binding Capacity 157 ug/dL Iron Saturation 23 % Ferritin 234 ng/mL Creatine Kinase 70 U/L Glucose (Fingerstick) 317 mg/dL 118 mg/dL Urine Collection Type Unknown Urine Color Yellow Urine Clarity Clear Urine pH 7.5 Urine Specific [place] 1.025 Urine Protein >=300 mg/dL Urine Glucose (UA) 500 mg/dL Urine Ketones (Stick) Negative mg/dL Urine Blood Negative Urine Nitrite Negative Urine Bilirubin Negative Urine Urobilinogen Dipstick 0.2 mg/dL Urine Leukocyte Esterase Negative Urine RBC 1-2 /HPF Urine WBC 1-4 /HPF Urine Squamous Epithelial Cells Mod /LPF Urine Bacteria 0 /HPF Test 03/30/17 20:57 03/31/17 03:20 03/31/17 07:10 Glucose (Fingerstick) 131 mg/dL 139 mg/dL Hemoglobin 8.6 g/dL Sodium Level 143 mmol/L Potassium Level 3.4 mmol/L Chloride Level 109 mmol/L Carbon Dioxide Level 21 mmol/L Anion Gap 13 Blood Urea Nitrogen 36 mg/dL Creatinine 2.9 mg/dL Estimated GFR (Cockcroft-Gault) 16.3 Glucose Level 113 mg/dL Calcium Level 8.3 mg/dL Phosphorus Level 4.8 mg/dL Magnesium Level 1.7 mg/dL Iron Level 51 ug/dL Total Iron Binding Capacity 155 ug/dL Iron Saturation 33 % Albumin 1.6 g/dL PE: GEN: NAD LUNGS: clear anteriorly HEART: RRR ABD: S/ND/NT NEURO/PSYCH: A & O 3 A/P: N/v - resolved -h/o GERD, h/o DM -on H2 jas, historically improves symptoms Facial cellulitis/sinusitis, CKD -per ID and nephrology Anemia -Hgb stable since 2013, chronic disease -- Continue same per GI. Agree w/ advancing diet. Outpt screening colonoscopy recommended. AYLEEN RICE March 31, 2017 09:55
--- NOTE | 2017-03-31 10:05 | PDOC ---
PROGRESS NOTES Chief Complaint Chief Complaint facial cellulitis and sinusitis, nausea and vomiting, dehdration, vasomotor nephropathy on CKD anemia DM2, goog control, A1c is 7.1, FSBS > 400 on admit LE edema, severe malnutrition, serum albumin 1.7, w/ BMI 30 large proteinuria, suspect nephrotic range, 24 hour done today at 1pm History of Present Illness History of Present Illness no vomiting, feels better she feels she is making a large amount of urine Vitals Vitals Vital Signs Date Time Temp Pulse Resp B/P (MAP) Pulse Ox O2 Delivery O2 Flow Rate FiO2 03/31/17 07:36 84 171/75 03/31/17 07:15 99.3 18 88 Room Air 99.3 Physical Exam General: Alert, Oriented X3, Cooperative, No acute distress Heart: Regular rate Lungs: Clear Abdomen: Normal bowel sounds, Soft Extremities: Normal pulses, Other (2+ LE edema) Labs LABS Laboratory Tests Test 03/30/17 11:15 03/30/17 12:05 03/30/17 16:48 03/30/17 17:50 Reticulocyte Count (auto) 1.5 % (0.5-2.5) Iron Level 36 ug/dL (50-170) Total Iron Binding Capacity 157 ug/dL (250-450) Iron Saturation 23 % (15-34) Ferritin 234 ng/mL (8-252) Creatine Kinase 70 U/L (26-192) Glucose (Fingerstick) 317 mg/dL (70-99) 118 mg/dL (70-99) Urine Collection Type Unknown Urine Color Yellow Urine Clarity Clear Urine pH 7.5 Urine Specific [place] 1.025 Urine Protein >=300 mg/dL (NEG-TRACE) Urine Glucose (UA) 500 mg/dL (NEG) Urine Ketones (Stick) Negative mg/dL (NEG) Urine Blood Negative (NEG) Urine Nitrite Negative (NEG) Urine Bilirubin Negative (NEG) Urine Urobilinogen Dipstick 0.2 mg/dL (0.2 mg/dL) Urine Leukocyte Esterase Negative (NEG) Urine RBC 1-2 /HPF (0-2) Urine WBC 1-4 /HPF (0-4) Urine Squamous Epithelial Cells Mod /LPF Urine Bacteria 0 /HPF (0-FEW) Test 03/30/17 20:57 03/31/17 03:20 03/31/17 07:10 Glucose (Fingerstick) 131 mg/dL (70-99) 139 mg/dL (70-99) Hemoglobin 8.6 g/dL (12.0-15.5) Sodium Level 143 mmol/L (136-145) Potassium Level 3.4 mmol/L (3.5-5.1) Chloride Level 109 mmol/L (98-107) Carbon Dioxide Level 21 mmol/L (21-32) Anion Gap 13 (6-14) Blood Urea Nitrogen 36 mg/dL (7-20) Creatinine 2.9 mg/dL (0.6-1.0) Estimated GFR (Cockcroft-Gault) 16.3 Glucose Level 113 mg/dL (70-99) Calcium Level 8.3 mg/dL (8.5-10.1) Phosphorus Level 4.8 mg/dL (2.6-4.7) Magnesium Level 1.7 mg/dL (1.8-2.4) Iron Level 51 ug/dL (50-170) Total Iron Binding Capacity 155 ug/dL (250-450) Iron Saturation 33 % (15-34) Albumin 1.6 g/dL (3.4-5.0) Review of Systems Review of Systems no n.vd. some weakness would like to eat more Assessment and Plan Assessmemt and Plan Problems Medical Problems: (1) Dental abscess Status: Acute (2) Facial cellulitis Status: Acute (3) Intractable vomiting Status: Acute Problems: Comment Review of Relevant I have reviewed the following items ari (where applicable) has been applied. Labs Laboratory Tests Test 03/30/17 08:55 03/30/17 09:00 03/30/17 09:06 03/30/17 11:15 White Blood Count 9.3 x10^3/uL (4.0-11.0) Red Blood Count 2.89 x10^6/uL (3.50-5.40) Hemoglobin 8.6 g/dL (12.0-15.5) Hematocrit 25.6 % (36.0-47.0) Mean Corpuscular Volume 89 fL (79-100) Mean Corpuscular Hemoglobin 30 pg (25-35) Mean Corpuscular Hemoglobin Concent 34 g/dL (31-37) Red Cell Distribution Width 13.6 % (11.5-14.5) Platelet Count 190 x10^3/uL (140-400) Neutrophils (%) (Auto) 86 % (31-73) Lymphocytes (%) (Auto) 10 % (24-48) Monocytes (%) (Auto) 3 % (0-9) Eosinophils (%) (Auto) 0 % (0-3) Basophils (%) (Auto) 1 % (0-3) Neutrophils # (Auto) 8.0 x10^3uL (1.8-7.7) Lymphocytes # (Auto) 0.9 x10^3/uL (1.0-4.8) Monocytes # (Auto) 0.3 x10^3/uL (0.0-1.1) Eosinophils # (Auto) 0.0 x10^3/uL (0.0-0.7) Basophils # (Auto) 0.1 x10^3/uL (0.0-0.2) Segmented Neutrophils % 88 % (35-66) Band Neutrophils % 1 % (0-9) Lymphocytes % 10 % (24-48) Monocytes % 1 % (0-10) Platelet Estimate Adequate (ADEQUATE) Sodium Level 140 mmol/L (136-145) Potassium Level 3.8 mmol/L (3.5-5.1) Chloride Level 106 mmol/L (98-107) Carbon Dioxide Level 22 mmol/L (21-32) Anion Gap 12 (6-14) Blood Urea Nitrogen 37 mg/dL (7-20) Creatinine 2.5 mg/dL (0.6-1.0) Estimated GFR (Cockcroft-Gault) 19.4 BUN/Creatinine Ratio 15 (6-20) Glucose Level 446 mg/dL (70-99) Hemoglobin A1c 7.1 % (4.8-5.6) Calcium Level 7.6 mg/dL (8.5-10.1) Total Bilirubin 0.2 mg/dL (0.2-1.0) Aspartate Amino Transf (AST/SGOT) 17 U/L (15-37) Alanine Aminotransferase (ALT/SGPT) 14 U/L (14-59) Alkaline Phosphatase 109 U/L (46-116) Total Protein 5.6 g/dL (6.4-8.2) Albumin 1.7 g/dL (3.4-5.0) Albumin/Globulin Ratio 0.4 (1.0-1.7) Nasal Screen MRSA (PCR) Positive (Negative) Glucose (Fingerstick) 425 mg/dL (70-99) Reticulocyte Count (auto) 1.5 % (0.5-2.5) Iron Level 36 ug/dL (50-170) Total Iron Binding Capacity 157 ug/dL (250-450) Iron Saturation 23 % (15-34) Ferritin 234 ng/mL (8-252) Creatine Kinase 70 U/L (26-192) Test 03/30/17 12:05 03/30/17 16:48 03/30/17 17:50 03/30/17 20:57 Glucose (Fingerstick) 317 mg/dL (70-99) 118 mg/dL (70-99) 131 mg/dL (70-99) Urine Collection Type Unknown Urine Color Yellow Urine Clarity Clear Urine pH 7.5 Urine Specific [place] 1.025 Urine Protein >=300 mg/dL (NEG-TRACE) Urine Glucose (UA) 500 mg/dL (NEG) Urine Ketones (Stick) Negative mg/dL (NEG) Urine Blood Negative (NEG) Urine Nitrite Negative (NEG) Urine Bilirubin Negative (NEG) Urine Urobilinogen Dipstick 0.2 mg/dL (0.2 mg/dL) Urine Leukocyte Esterase Negative (NEG) Urine RBC 1-2 /HPF (0-2) Urine WBC 1-4 /HPF (0-4) Urine Squamous Epithelial Cells Mod /LPF Urine Bacteria 0 /HPF (0-FEW) Test 03/31/17 03:20 03/31/17 07:10 Hemoglobin 8.6 g/dL (12.0-15.5) Sodium Level 143 mmol/L (136-145) Potassium Level 3.4 mmol/L (3.5-5.1) Chloride Level 109 mmol/L (98-107) Carbon Dioxide Level 21 mmol/L (21-32) Anion Gap 13 (6-14) Blood Urea Nitrogen 36 mg/dL (7-20) Creatinine 2.9 mg/dL (0.6-1.0) Estimated GFR (Cockcroft-Gault) 16.3 Glucose Level 113 mg/dL (70-99) Calcium Level 8.3 mg/dL (8.5-10.1) Phosphorus Level 4.8 mg/dL (2.6-4.7) Magnesium Level 1.7 mg/dL (1.8-2.4) Iron Level 51 ug/dL (50-170) Total Iron Binding Capacity 155 ug/dL (250-450) Iron Saturation 33 % (15-34) Albumin 1.6 g/dL (3.4-5.0) Glucose (Fingerstick) 139 mg/dL (70-99) Laboratory Tests Test 03/30/17 11:15 03/30/17 12:05 03/30/17 16:48 03/30/17 17:50 Reticulocyte Count (auto) 1.5 % (0.5-2.5) Iron Level 36 ug/dL (50-170) Total Iron Binding Capacity 157 ug/dL (250-450) Iron Saturation 23 % (15-34) Ferritin 234 ng/mL (8-252) Creatine Kinase 70 U/L (26-192) Glucose (Fingerstick) 317 mg/dL (70-99) 118 mg/dL (70-99) Urine Collection Type Unknown Urine Color Yellow Urine Clarity Clear Urine pH 7.5 Urine Specific [place] 1.025 Urine Protein >=300 mg/dL (NEG-TRACE) Urine Glucose (UA) 500 mg/dL (NEG) Urine Ketones (Stick) Negative mg/dL (NEG) Urine Blood Negative (NEG) Urine Nitrite Negative (NEG) Urine Bilirubin Negative (NEG) Urine Urobilinogen Dipstick 0.2 mg/dL (0.2 mg/dL) Urine Leukocyte Esterase Negative (NEG) Urine RBC 1-2 /HPF (0-2) Urine WBC 1-4 /HPF (0-4) Urine Squamous Epithelial Cells Mod /LPF Urine Bacteria 0 /HPF (0-FEW) Test 03/30/17 20:57 03/31/17 03:20 03/31/17 07:10 Glucose (Fingerstick) 131 mg/dL (70-99) 139 mg/dL (70-99) Hemoglobin 8.6 g/dL (12.0-15.5) Sodium Level 143 mmol/L (136-145) Potassium Level 3.4 mmol/L (3.5-5.1) Chloride Level 109 mmol/L (98-107) Carbon Dioxide Level 21 mmol/L (21-32) Anion Gap 13 (6-14) Blood Urea Nitrogen 36 mg/dL (7-20) Creatinine 2.9 mg/dL (0.6-1.0) Estimated GFR (Cockcroft-Gault) 16.3 Glucose Level 113 mg/dL (70-99) Calcium Level 8.3 mg/dL (8.5-10.1) Phosphorus Level 4.8 mg/dL (2.6-4.7) Magnesium Level 1.7 mg/dL (1.8-2.4) Iron Level 51 ug/dL (50-170) Total Iron Binding Capacity 155 ug/dL (250-450) Iron Saturation 33 % (15-34) Albumin 1.6 g/dL (3.4-5.0) Medications Current Medications Cefazolin Sodium (Ancef Im) 1 gm 1X ONCE IM Last administered on 03/30/17 01: 30; Start 03/30/17 at 02:00; Stop 03/30/17 at 02:01; Status DC Hydromorphone HCl (Dilaudid) 1 mg 1X ONCE IM Last administered on 03/30/17 01 :29; Start 03/30/17 at 02:00; Stop 03/30/17 at 02:01; Status DC Ondansetron HCl (Zofran Odt) 4 mg 1X ONCE PO Last administered on 03/30/17 01 :29; Start 03/30/17 at 01:30; Stop 03/30/17 at 01:31; Status DC Ondansetron HCl (Zofran Odt) 4 mg 1X ONCE PO Last administered on 03/30/17 02 :13; Start 03/30/17 at 02:30; Stop 03/30/17 at 02:31; Status DC Metoclopramide HCl (Reglan) 10 mg 1X ONCE IV Last administered on 03/30/17 03 :25; Start 03/30/17 at 04:00; Stop 03/30/17 at 04:01; Status DC Sodium Chloride 1,000 ml @ 1,000 mls/hr 1X ONCE IV Last administered on 03:22; Start 03/30/17 at 04:00; Stop 03/30/17 at 19:25; Status DC Ondansetron HCl (Zofran) 4 mg 1X ONCE IV Last administered on 03/30/17 04:55 ; Start 03/30/17 at 05:15; Stop 03/30/17 at 05:16; Status DC Ondansetron HCl (Zofran) 4 mg PRN Q4HRS PRN IV NAUSEA/VOMITING; Start 03/30/17 at 05:45; Stop 03/31/17 at 05:44; Status DC Sodium Chloride 1,000 ml @ 100 mls/hr Q10H IV Last administered on 03/30/17 07:27; Start 03/30/17 at 05:36; Stop 03/30/17 at 17:17; Status DC Cefazolin Sodium 1 gm/Sodium Chloride 50 ml @ 100 mls/hr Q8HRS IV Last administered on 03/30/17 07:26; Start 03/30/17 at 06:00; Stop 03/30/17 at 10:24 ; Status DC Amlodipine Besylate (Norvasc) 10 mg 1X ONCE PO Last administered on 03/30/17 08:15; Start 03/30/17 at 06:30; Stop 03/30/17 at 06:31; Status DC Lisinopril (Prinivil) 20 mg 1X ONCE PO Last administered on 03/30/17 08:13; Start 03/30/17 at 06:30; Stop 03/30/17 at 06:31; Status DC Hydralazine HCl (Apresoline) 5 mg 1X ONCE IVP ; Start 03/30/17 at 07:00; Stop 03/30/17 at 07:01; Status DC Diphenhydramine HCl (Benadryl) 25 mg 1X ONCE IVP Last administered on 08:16; Start 03/30/17 at 07:00; Stop 03/30/17 at 07:01; Status DC Prochlorperazine Edisylate (Compazine) 10 mg 1X ONCE IV Last administered on 08:15; Start 03/30/17 at 07:00; Stop 03/30/17 at 07:01; Status DC Ondansetron HCl (Zofran) 8 mg PRN Q8HRS PRN IV NAUSEA/VOMITING; Start 03/30/17 at 08:15 Amlodipine Besylate (Norvasc) 10 mg DAILY PO Last administered on 03/31/17 07: 36; Start 03/30/17 at 09:00 Atorvastatin Calcium (Lipitor) 20 mg HS PO ; Start 03/30/17 at 21:00 Citalopram Hydrobromide (CeleXA) 20 mg DAILY PO Last administered on 03/31/17 07:34; Start 03/30/17 at 09:00 Hydralazine HCl (Apresoline) 50 mg TID PO Last administered on 03/31/17 07:33 ; Start 03/30/17 at 09:00 Insulin Aspart (NovoLOG) 12 units TIDAC SQ Last administered on 03/30/17 10:07 ; Start 03/30/17 at 11:30 Lisinopril (Prinivil) 20 mg DAILY PO Last administered on 03/31/17 07:36; Start 03/30/17 at 09:00 Meclizine HCl (Antivert) 12.5 mg PRN TID PRN PO NAUSEA; Start 03/30/17 at 08:15 Metformin HCl (Glucophage Xr) 500 mg DAILYWBKFT PO ; Start 03/30/17 at 09:00; Stop 03/30/17 at 09:47; Status DC Brimonidine Tartrate (Alphagan) 1 drop BID OS Last administered on 03/31/17 08 :11; Start 03/30/17 at 10:00 Insulin Detemir (Levemir) 24 units QHS SQ ; Start 03/30/17 at 21:00 Dexamethasone (Maxidex) 1 drop PRN QID PRN OU Swollen eyes Last administered on 03/31/17 08:11; Start 03/30/17 at 10:00 Pregabalin (Lyrica) 100 mg BID PO Last administered on 03/31/17 07:35; Start 03/30/17 at 09:00 Sodium Chloride 1,000 ml @ 100 mls/hr Q10H IV Last administered on 03/31/17 05:30; Start 03/30/17 at 09:15 Insulin Aspart (NovoLOG) 0-9 UNITS TIDWMEALS SQ Last administered on 03/30/17 12:23; Start 03/30/17 at 12:00 Dextrose (Dextrose 50%-Water Syringe) 12.5 gm PRN Q15MIN PRN IV SEE COMMENTS; Start 03/30/17 at 09:15 Enoxaparin Sodium (Lovenox Per Pharmacy Prophylaxis Dosing) 1 each PRN DAILY PRN MC SEE COMMENTS; Start 03/30/17 at 10:00 Timolol Maleate (Timoptic 0.5% [facility]) 1 drop BID OS Last administered on 08:10; Start 03/30/17 at 10:00 Enoxaparin Sodium (Lovenox 30mg Syringe) 30 mg Q24H SQ ; Start 03/30/17 at 11:00 Amoxicillin/ Clavulanate Potassium (Augmentin 500/ 125mg) 1 tab BID PO Last administered on 03/31/17 07:34; Start 03/30/17 at 11:00 Magnesium Sulfate/ Dextrose 50 ml @ 25 mls/hr PRN DAILY PRN IV for Mag < 1.7 on am labs; Start 03/30/17 at 10:45 Aspirin (Ecotrin) 325 mg DAILYWBKFT PO Last administered on 03/31/17 07:34; Start 03/30/17 at 12:00 Famotidine (Pepcid) 20 mg QHS PO ; Start 03/30/17 at 21:00 Acetaminophen (Tylenol) 650 mg PRN Q6HRS PRN PO HEADACHE Last administered on 07:37; Start 03/30/17 at 11:45 Gabapentin (Neurontin) 100 mg QHS PO ; Start 03/30/17 at 14:00 Aspirin (Children'S Aspirin) 81 mg DAILYWBKFT PO ; Start 03/31/17 at 08:00; Status UNV Potassium Chloride (Klor-Con) 20 meq 1X ONCE PO Last administered on 09:26; Start 03/31/17 at 09:00; Stop 03/31/17 at 09:01; Status DC Magnesium Sulfate/ Dextrose 100 ml @ 100 mls/hr 1X ONCE IV Last administered on 03/31/17 09:27; Start 03/31/17 at 09:00; Stop 03/31/17 at 09:59; Status DC Polyethylene Glycol (miraLAX PACKET) 17 gm DAILY PO ; Start 03/31/17 at 09:30 Active Scripts Active [place] 5-325 Tablet (Acetaminophen/Hydrocodone Bitart) 1 Each Tablet 1 Tab PO QID PRN Keflex (Cephalexin) 500 Mg Capsule 500 Mg PO QID 10 Days Reported Furosemide 40 Mg Tablet 40 Mg PO DAILY Macrobid 100 Mg Capsule (Nitrofurantoin Monohyd/M-Cryst) 100 Mg Capsule 100 Mg PO HS Lyrica (Pregabalin) 20 Mg/1 Ml Solution 100 Mg PO BID 30 Days Metformin Hcl Er (Metformin Hcl) 500 Mg Tab.er.24h 500 Mg PO DAILYWBKFT Combigan Eye Drops (Brimonidine Tartrate/Timolol) 5 Ml Drops 5 Ml OS BID Hydralazine Hcl 50 Mg Tablet 1 Tab PO TID Citalopram Hbr (Citalopram Hydrobromide) 20 Mg Tablet 1 Tab PO DAILY Pred Forte (Prednisolone Acetate) 1 Ml Drops.susp 1 Drop OU QID PRN Novolog Flexpen (Insulin Aspart) 100 Unit/1 Ml Insuln.pen 12 Unit SQ TIDAC Meclizine Hcl 12.5 Mg Tablet 1 Tab PO TID PRN Atorvastatin Calcium 20 Mg Tablet 20 Mg PO HS Levemir (Insulin Detemir) 100 Unit/1 Ml Vial 24 Unit SQ HS Norvasc (Amlodipine Besylate) 10 Mg Tablet 1 Tab PO DAILY Lisinopril 20 Mg Tablet 1 Tab PO DAILY Vitals/I & O Vital Sign - Last 24 Hours 03/30/17 03/30/17 03/30/17 03/30/17 10:45 11:00 15:00 15:21 Temp 97.7 97.8 97.7 97.8 Pulse 98 74 98 Resp 16 16 B/P (MAP) 171/82 (111) 143/68 (93) 171/82 Pulse Ox 94 96 O2 Delivery Room Air Room Air Room Air 03/30/17 03/30/17 03/30/17 03/30/17 19:58 20:05 21:00 23:26 Temp 97.6 98.5 97.6 98.5 Pulse 74 74 72 Resp 18 18 B/P (MAP) 140/67 (91) 140/67 152/68 (96) Pulse Ox 92 93 O2 Delivery Room Air Room Air Room Air 03/31/17 03/31/17 03/31/17 03/31/17 03:47 07:15 07:33 07:36 Temp 99.7 99.3 99.7 99.3 Pulse 84 91 84 84 Resp 18 18 B/P (MAP) 171/75 (107) 171/75 (107) 171/75 171/75 Pulse Ox 90 88 O2 Delivery Room Air Room Air 03/31/17 07:36 Pulse 84 B/P (MAP) 171/75 Intake and Output 03/30/17 03/30/17 03/31/17 15:00 23:00 07:00 Intake Total 800 ml 2260 ml Balance 800 ml 2260 ml ZULEYMA BRUCE MD March 31, 2017 10:05
[2017-03-31] MEDS ORDERED: DOCUSATE SODIUM 100 MG CAPSULE. PO PRN (10:15)
[2017-03-31] MEDS ORDERED: POLYETHYLENE GLYCOL 3350 17 GM PACKET. PO PRN (10:15)
[2017-03-31 10:50] VITALS: BP 122/60
--- NOTE | 2017-03-31 11:20 | PDOC ---
SUBJECTIVE ROS MYAH Doing better today from facial pain standpoint; CVS: no Orthopnea, no CP RESP: no SOB, no PETER GI: no Nausea, no Vomiting : no Dysuria, no Urgency OBJECTIVE Vital Signs Vital Signs Date Time Temp Pulse Resp B/P (MAP) Pulse Ox O2 Delivery O2 Flow Rate FiO2 03/31/17 10:50 74 18 122/60 (80) 93 Room Air 03/31/17 07:15 99.3 99.3 I & 0 Intake and Output 03/31/17 07:00 Intake Total 3060 ml Balance 3060 ml Intake Oral 1160 ml IV Total 700 ml Other 1200 ml PHYSICAL EXAM Physical Exam General Appearance: Awake Alert Oriented x 3 In no Distress Eyes: Ch Blindness (legal) Conjunctiva Normal EN: No EN Drainage Mucous Memb. moist Neck: no JVD min JVP Supple no Thyromegaly CVS: S1 S2 + Murmur No Gallop No Rub +2 Edema Resp: no Rales no Rhonchi no Acc. Muscle use GI: BAS +ve NO Bruit Non Tender Non Distended; Obese : no CVA tenderness; no Suprapubic Tenderness Assessment & Plan MYAH - ? due to infection and/ or due to recent NSAID use for facial pain. Current FLuid and E-lyte status does not necessitate emergent need for Dialysis. Will re-evaluate for Dialysis in am - Creat is worse today. UO is not well reocded, Pt refusing brice. IVF to be started. 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 for hgb < 7; start EPO sev HTN: (OA) - now better controlled. Current BP meds reviewed. See orders for changes. suspect sev Orthostasis Bone & Mineral: Check PTH etc Edema - suspect due to Low Alb, check Hepatitis panel too; D/c IVF and use IV Alb DM-2 with intermediate insulin use - with DR (high likelihood of DM-2 Nephropathy ) COMMENT/RELEVANT DATA Meds Current Medications Medications (Trade) Dose Ordered Sig/Roshan Start Time Stop Time Status Last Admin Dose Admin Acetaminophen (Tylenol) 650 mg PRN Q6HRS PRN 03/30/17 11:45 03/31/17 07:37 650 MG Amlodipine Besylate (Norvasc) 10 mg DAILY 03/30/17 09:00 03/31/17 07:36 10 MG Amoxicillin/ Clavulanate Potassium (Augmentin 500/ 125mg) 1 tab BID 03/30/17 11:00 03/31/17 07:34 1 TAB Aspirin (Children'S Aspirin) 81 mg DAILYWBKFT 03/31/17 08:00 UNV Aspirin (Ecotrin) 325 mg DAILYWBKFT 03/30/17 12:00 03/31/17 07:34 325 MG Atorvastatin Calcium (Lipitor) 20 mg HS 03/30/17 21:00 Brimonidine Tartrate (Alphagan) 1 drop BID 03/30/17 10:00 03/31/17 08:11 1 DROP Cefazolin Sodium (Ancef Im) 1 gm 1X ONCE 03/30/17 02:00 03/30/17 02:01 DC 03/30/17 01:30 1 GM Cefazolin Sodium 1 gm/Sodium Chloride 50 ml @ 100 mls/hr Q8HRS 03/30/17 06:00 03/30/17 10:24 DC 03/30/17 07:26 100 MLS/HR Citalopram Hydrobromide (CeleXA) 20 mg DAILY 03/30/17 09:00 03/31/17 07:34 20 MG Dexamethasone (Maxidex) 1 drop PRN QID PRN 03/30/17 10:00 03/31/17 08:11 1 DROP Dextrose (Dextrose 50%-Water Syringe) 12.5 gm PRN Q15MIN PRN 03/30/17 09:15 Diphenhydramine HCl (Benadryl) 25 mg 1X ONCE 03/30/17 07:00 03/30/17 07:01 DC 03/30/17 08:16 25 MG Docusate Sodium (Colace) 100 mg PRN DAILY PRN 03/31/17 10:15 Enoxaparin Sodium (Lovenox 30mg Syringe) 30 mg Q24H 03/30/17 11:00 Enoxaparin Sodium (Lovenox Per Pharmacy Prophylaxis Dosing) 1 each PRN DAILY PRN 03/30/17 10:00 Famotidine (Pepcid) 20 mg QHS 03/30/17 21:00 Gabapentin (Neurontin) 100 mg QHS 03/30/17 14:00 Hydralazine HCl (Apresoline) 50 mg TID 03/30/17 09:00 03/31/17 07:33 50 MG Hydromorphone HCl (Dilaudid) 1 mg 1X ONCE 03/30/17 02:00 03/30/17 02:01 DC 03/30/17 01:29 1 MG Insulin Aspart (NovoLOG) 0-9 UNITS TIDWMEALS 03/30/17 12:00 03/30/17 12:23 9 UNITS Insulin Detemir (Levemir) 24 units QHS 03/30/17 21:00 Lisinopril (Prinivil) 20 mg DAILY 03/30/17 09:00 03/31/17 07:36 20 MG Magnesium Sulfate/ Dextrose 100 ml @ 100 mls/hr 1X ONCE 03/31/17 09:00 03/31/17 09:59 DC 03/31/17 09:27 100 MLS/HR Meclizine HCl (Antivert) 12.5 mg PRN TID PRN 03/30/17 08:15 Metformin HCl (Glucophage Xr) 500 mg DAILYWBKFT 03/30/17 09:00 03/30/17 09:47 DC Metoclopramide HCl (Reglan) 10 mg 1X ONCE 03/30/17 04:00 03/30/17 04:01 DC 03/30/17 03:25 10 MG Ondansetron HCl (Zofran Odt) 4 mg 1X ONCE 03/30/17 02:30 03/30/17 02:31 DC 03/30/17 02:13 4 MG Ondansetron HCl (Zofran) 8 mg PRN Q8HRS PRN 03/30/17 08:15 Polyethylene Glycol (miraLAX PACKET) 17 gm PRN DAILY PRN 03/31/17 10:15 Potassium Chloride (Klor-Con) 20 meq 1X ONCE 03/31/17 09:00 03/31/17 09:01 DC 03/31/17 09:26 20 MEQ Pregabalin (Lyrica) 100 mg BID 03/30/17 09:00 03/31/17 07:35 100 MG Prochlorperazine Edisylate (Compazine) 10 mg 1X ONCE 03/30/17 07:00 03/30/17 07:01 DC 03/30/17 08:15 10 MG Sodium Chloride 1,000 ml @ 100 mls/hr Q10H 03/30/17 09:15 03/31/17 05:30 100 MLS/HR Timolol Maleate (Timoptic 0.5% Ophth) 1 drop BID 03/30/17 10:00 03/31/17 08:10 1 DROP Lab Laboratory Tests Test 03/30/17 11:15 03/30/17 12:05 03/30/17 16:48 03/30/17 17:50 Reticulocyte Count (auto) 1.5 % (0.5-2.5) Iron Level 36 ug/dL (50-170) Total Iron Binding Capacity 157 ug/dL (250-450) Iron Saturation 23 % (15-34) Ferritin 234 ng/mL (8-252) Creatine Kinase 70 U/L (26-192) Glucose (Fingerstick) 317 mg/dL (70-99) 118 mg/dL (70-99) Urine Collection Type Unknown Urine Color Yellow Urine Clarity Clear Urine pH 7.5 Urine Specific [place] 1.025 Urine Protein >=300 mg/dL (NEG-TRACE) Urine Glucose (UA) 500 mg/dL (NEG) Urine Ketones (Stick) Negative mg/dL (NEG) Urine Blood Negative (NEG) Urine Nitrite Negative (NEG) Urine Bilirubin Negative (NEG) Urine Urobilinogen Dipstick 0.2 mg/dL (0.2 mg/dL) Urine Leukocyte Esterase Negative (NEG) Urine RBC 1-2 /HPF (0-2) Urine WBC 1-4 /HPF (0-4) Urine Squamous Epithelial Cells Mod /LPF Urine Bacteria 0 /HPF (0-FEW) Test 03/30/17 20:57 03/31/17 03:20 03/31/17 07:10 Glucose (Fingerstick) 131 mg/dL (70-99) 139 mg/dL (70-99) Hemoglobin 8.6 g/dL (12.0-15.5) Sodium Level 143 mmol/L (136-145) Potassium Level 3.4 mmol/L (3.5-5.1) Chloride Level 109 mmol/L (98-107) Carbon Dioxide Level 21 mmol/L (21-32) Anion Gap 13 (6-14) Blood Urea Nitrogen 36 mg/dL (7-20) Creatinine 2.9 mg/dL (0.6-1.0) Estimated GFR (Cockcroft-Gault) 16.3 Glucose Level 113 mg/dL (70-99) Calcium Level 8.3 mg/dL (8.5-10.1) Phosphorus Level 4.8 mg/dL (2.6-4.7) Magnesium Level 1.7 mg/dL (1.8-2.4) Iron Level 51 ug/dL (50-170) Total Iron Binding Capacity 155 ug/dL (250-450) Iron Saturation 33 % (15-34) Albumin 1.6 g/dL (3.4-5.0) DAVID REY MD March 31, 2017 11:20
--- NOTE | 2017-03-31 11:46 | PDOC ---
Infectious Disease Note Subjective Subjective Better. Less swelling and sinus discomfort. Tolerating abx ROS ROS GEN: Denies fevers, chills, sweats HEENT: Denies blurred vision, sore throat CV: Denies chest pain RESP: Denies shortness of air, cough GI: Denies n/v/d NEURO: Denies confusion, dizziness MSK: Denies weakness, joint pain/swelling Vital Sign Vital Signs Vital Signs Date Time Temp Pulse Resp B/P (MAP) Pulse Ox O2 Delivery O2 Flow Rate FiO2 03/31/17 10:50 74 18 122/60 (80) 93 Room Air 03/31/17 07:15 99.3 99.3 Physical Exam PHYSICAL EXAM GENERAL: NAD, Alert HEENT: PERRL, OC/OP - clear. Almost resolved lip swelling NECK: Supple, no JVD, no LN LUNGS: Clear HEART: S1S2, no gallop, no murmur ABD: Soft, NT, no organomegaly, no rebound, obese EXT: No edema, no cyanosis GREENS KEEPER: Alert, oriented x 3, no focal neurologic deficit SKIN: No rash IV: ok Labs Lab Laboratory Tests Test 03/30/17 12:05 03/30/17 16:48 03/30/17 17:50 03/30/17 20:57 Glucose (Fingerstick) 317 mg/dL (70-99) 118 mg/dL (70-99) 131 mg/dL (70-99) Urine Collection Type Unknown Urine Color Yellow Urine Clarity Clear Urine pH 7.5 Urine Specific [place] 1.025 Urine Protein >=300 mg/dL (NEG-TRACE) Urine Glucose (UA) 500 mg/dL (NEG) Urine Ketones (Stick) Negative mg/dL (NEG) Urine Blood Negative (NEG) Urine Nitrite Negative (NEG) Urine Bilirubin Negative (NEG) Urine Urobilinogen Dipstick 0.2 mg/dL (0.2 mg/dL) Urine Leukocyte Esterase Negative (NEG) Urine RBC 1-2 /HPF (0-2) Urine WBC 1-4 /HPF (0-4) Urine Squamous Epithelial Cells Mod /LPF Urine Bacteria 0 /HPF (0-FEW) Test 03/31/17 03:20 03/31/17 07:10 Hemoglobin 8.6 g/dL (12.0-15.5) Sodium Level 143 mmol/L (136-145) Potassium Level 3.4 mmol/L (3.5-5.1) Chloride Level 109 mmol/L (98-107) Carbon Dioxide Level 21 mmol/L (21-32) Anion Gap 13 (6-14) Blood Urea Nitrogen 36 mg/dL (7-20) Creatinine 2.9 mg/dL (0.6-1.0) Estimated GFR (Cockcroft-Gault) 16.3 Glucose Level 113 mg/dL (70-99) Calcium Level 8.3 mg/dL (8.5-10.1) Phosphorus Level 4.8 mg/dL (2.6-4.7) Magnesium Level 1.7 mg/dL (1.8-2.4) Iron Level 51 ug/dL (50-170) Total Iron Binding Capacity 155 ug/dL (250-450) Iron Saturation 33 % (15-34) Albumin 1.6 g/dL (3.4-5.0) Glucose (Fingerstick) 139 mg/dL (70-99) Objective Assessment Facial Cellulitis - better Poor dentition Sinusitis Sulfa allergy CKD DM - not controlled yet but just admitted 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
[2017-03-31] MEDS: ENOXAPARIN 30 MG/0.3 ML SYRINGE. SQ SCH (13:58)
[2017-03-31] MEDS: POLYETHYLENE GLYCOL 3350 17 GM PACKET. PO SCH (13:58)
[2017-03-31 15:00] VITALS: BP 150/56
[2017-03-31] MEDS: ALBUMIN HUMAN 25% 100 ML IV SCH ×2 (16:01→21:30)
[2017-03-31 16:20] LABS: PTH INTACT 154 pg/mL (15-65)
[2017-03-31 19:07] VITALS: BP 156/77
[2017-03-31] MEDS ORDERED: DARBEPOETIN ALFA 60 MCG/0.3 ML DISP.SYRIN. SQ SCH (21:00)
[2017-03-31] MEDS: INSULIN DETEMIR 300 UNITS/3 ML INSULN.PEN. SQ SCH (21:00)
[2017-03-31] MEDS: GABAPENTIN 100 MG CAPSULE. PO SCH (21:28)
[2017-03-31] MEDS: ATORVASTATIN CALCIUM 20 MG TABLET PO SCH (21:28)
[2017-03-31] MEDS: FAMOTIDINE 20 MG TABLET. PO SCH (21:28)
[2017-03-31 23:25] VITALS: BP 151/74
[2017-04-01 03:07] VITALS: BP 202/84
[2017-04-01 04:41] LABS: ALBUMIN 2.2 g/dL (3.4-5.0); CALCIUM 8.4 mg/dL (8.5-10.1); CREATININE 2.9 mg/dL (0.6-1.0); GFR 16.3; PHOSPHORUS 4.2 mg/dL (2.6-4.7); POTASSIUM 3.8 mmol/L (3.5-5.1)
[2017-04-01 07:00] VITALS: BP 215/91
[2017-04-01 07:36] LABS: HEP A IGM ABDY Negative (Negative); HEP B SURFACE ABDY Reactive (.)
[2017-04-01] MEDS: INSULIN ASPART 300 UNITS/3 ML INSULN.PEN SQ SCH ×6 (08:00→17:00)
[2017-04-01] MEDS: CITALOPRAM 20 MG TABLET. PO SCH (08:23)
[2017-04-01] MEDS: LISINOPRIL 20 MG TABLET PO SCH (08:23)
[2017-04-01] MEDS: AMOXICILLIN/K CLAV 500/125MG TABLET. PO SCH ×2 (08:24→21:51)
[2017-04-01] MEDS: amLODIPine BESYLATE 10 MG TABLET PO SCH (08:24)
[2017-04-01] MEDS: PREGABALIN 50 MG CAPSULE PO SCH ×2 (08:25→21:51)
[2017-04-01] MEDS: POLYETHYLENE GLYCOL 3350 17 GM PACKET. PO SCH (08:26)
[2017-04-01] MEDS: TIMOLOL 0.5% OPHTH SOLUTION 5ML BOTTLE. OS SCH ×2 (08:30→21:51)
[2017-04-01] MEDS: ALBUMIN HUMAN 25% 100 ML IV SCH ×3 (08:30→21:50)
[2017-04-01] MEDS: BRIMONIDINE 0.2% OPHTH SOLUTION 5ML BOTTLE. OS SCH ×2 (08:30→21:51)
--- NOTE | 2017-04-01 10:44 | PDOC ---
Infectious Disease Note Subjective Subjective Better. Less swelling and sinus discomfort. Tolerating abx Finally ate something ROS ROS GEN: Denies fevers, chills, sweats HEENT: Denies blurred vision, sore throat CV: Denies chest pain RESP: Denies shortness of air, cough GI: Denies n/v/d NEURO: Denies confusion, dizziness MSK: Denies weakness, joint pain/swelling Vital Sign Vital Signs Vital Signs Date Time Temp Pulse Resp B/P (MAP) Pulse Ox O2 Delivery O2 Flow Rate FiO2 04/01/17 08:24 91 215/91 04/01/17 07:00 98.7 16 82 Room Air 98.7 Physical Exam PHYSICAL EXAM GENERAL: NAD, Alert HEENT: PERRL, OC/OP - clear. Almost resolved lip swelling NECK: Supple, no JVD, no LN LUNGS: Clear HEART: S1S2, no gallop, no murmur ABD: Soft, NT, no organomegaly, no rebound, obese EXT: No edema, no cyanosis TIRE CARE MANAGER: Alert, oriented x 3, no focal neurologic deficit SKIN: No rash IV: ok Labs Lab Laboratory Tests Test 03/31/17 11:36 03/31/17 16:35 03/31/17 21:15 04/01/17 03:50 Glucose (Fingerstick) 212 mg/dL (70-99) 162 mg/dL (70-99) 86 mg/dL (70-99) Sodium Level 142 mmol/L (136-145) Potassium Level 3.8 mmol/L (3.5-5.1) Chloride Level 109 mmol/L (98-107) Carbon Dioxide Level 20 mmol/L (21-32) Anion Gap 13 (6-14) Blood Urea Nitrogen 37 mg/dL (7-20) Creatinine 2.9 mg/dL (0.6-1.0) Estimated GFR (Cockcroft-Gault) 16.3 Glucose Level 89 mg/dL (70-99) Calcium Level 8.4 mg/dL (8.5-10.1) Phosphorus Level 4.2 mg/dL (2.6-4.7) Magnesium Level 1.9 mg/dL (1.8-2.4) Albumin 2.2 g/dL (3.4-5.0) Test 04/01/17 08:09 Glucose (Fingerstick) 122 mg/dL (70-99) Objective Assessment Facial Cellulitis - better Poor dentition Sinusitis Sulfa allergy CKD DM - not controlled yet but just admitted 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
[2017-04-01 11:00] VITALS: BP 137/62
--- NOTE | 2017-04-01 11:08 | PDOC ---
PROGRESS NOTES Chief Complaint Chief Complaint facial cellulitis and sinusitis, nausea and vomiting, dehdration, vasomotor nephropathy on CKD anemia DM2, goog control, A1c is 7.1, FSBS > 400 on admit LE edema, severe malnutrition, serum albumin 1.7, w/ BMI 30 large proteinuria, suspect nephrotic range, 24 hour done today at 1pm History of Present Illness History of Present Illness sleeping hard but arousable preferred not to fully awaken for my exam no vomiting, feels better, no abd pain, tolerated breakfast well she feels she is making a large amount of urine Vitals Vitals Vital Signs Date Time Temp Pulse Resp B/P (MAP) Pulse Ox O2 Delivery O2 Flow Rate FiO2 04/01/17 08:24 91 215/91 04/01/17 07:00 98.7 16 82 Room Air 98.7 Physical Exam General: Alert, Oriented X3, Cooperative, No acute distress Heart: Regular rate, No murmurs Lungs: Clear Abdomen: Normal bowel sounds, Soft Extremities: No clubbing, Normal pulses, Other (2+ LE edema) Labs LABS Laboratory Tests Test 03/31/17 11:36 03/31/17 16:35 03/31/17 21:15 04/01/17 03:50 Glucose (Fingerstick) 212 mg/dL (70-99) 162 mg/dL (70-99) 86 mg/dL (70-99) Sodium Level 142 mmol/L (136-145) Potassium Level 3.8 mmol/L (3.5-5.1) Chloride Level 109 mmol/L (98-107) Carbon Dioxide Level 20 mmol/L (21-32) Anion Gap 13 (6-14) Blood Urea Nitrogen 37 mg/dL (7-20) Creatinine 2.9 mg/dL (0.6-1.0) Estimated GFR (Cockcroft-Gault) 16.3 Glucose Level 89 mg/dL (70-99) Calcium Level 8.4 mg/dL (8.5-10.1) Phosphorus Level 4.2 mg/dL (2.6-4.7) Magnesium Level 1.9 mg/dL (1.8-2.4) Albumin 2.2 g/dL (3.4-5.0) Test 04/01/17 08:09 Glucose (Fingerstick) 122 mg/dL (70-99) Review of Systems Review of Systems nausea better no abd pain facial swelling still better Assessment and Plan Assessmemt and Plan Problems Medical Problems: (1) Dental abscess Status: Acute (2) Facial cellulitis Status: Acute (3) Intractable vomiting Status: Acute Problems: Comment Review of Relevant I have reviewed the following items ari (where applicable) has been applied. Labs Laboratory Tests Test 03/30/17 11:15 03/30/17 12:05 03/30/17 16:48 03/30/17 17:50 Reticulocyte Count (auto) 1.5 % (0.5-2.5) Estimated GFR (Non- 20 (>59) Iron Level 36 ug/dL (50-170) Total Iron Binding Capacity 157 ug/dL (250-450) Iron Saturation 23 % (15-34) Ferritin 234 ng/mL (8-252) Creatine Kinase 70 U/L (26-192) EGFR 23 (>59) PTH (Intact) Specimen Description Comment (.) Parathyroid Hormone (Intact) 154 pg/mL (15-65) Calcium (PTH Intact) 8.0 mg/dL (8.7-10.3) Creatinine (PTH Intact) 2.48 mg/dL (0.57-1.00) Phosphorus (PTH Intact) 4.9 mg/dL (2.5-4.5) Hepatitis A IgM Antibody Negative (Negative) Hepatitis B Surface Antigen Negative (Negative) Hepatitis B Surface Antibody Reactive (.) Hepatitis B Core Total Antibody Negative (Negative) Hepatitis B Core IgM Antibody Negative (Negative) Hepatitis C Antibody <0.1 s/co ratio Glucose (Fingerstick) 317 mg/dL (70-99) 118 mg/dL (70-99) Urine Collection Type Unknown Urine Color Yellow Urine Clarity Clear Urine pH 7.5 Urine Specific [place] 1.025 Urine Protein >=300 mg/dL (NEG-TRACE) Urine Glucose (UA) 500 mg/dL (NEG) Urine Ketones (Stick) Negative mg/dL (NEG) Urine Blood Negative (NEG) Urine Nitrite Negative (NEG) Urine Bilirubin Negative (NEG) Urine Urobilinogen Dipstick 0.2 mg/dL (0.2 mg/dL) Urine Leukocyte Esterase Negative (NEG) Urine RBC 1-2 /HPF (0-2) Urine WBC 1-4 /HPF (0-4) Urine Squamous Epithelial Cells Mod /LPF Urine Bacteria 0 /HPF (0-FEW) Test 03/30/17 20:57 03/31/17 03:20 03/31/17 07:10 03/31/17 11:36 Glucose (Fingerstick) 131 mg/dL (70-99) 139 mg/dL (70-99) 212 mg/dL (70-99) Hemoglobin 8.6 g/dL (12.0-15.5) Sodium Level 143 mmol/L (136-145) Potassium Level 3.4 mmol/L (3.5-5.1) Chloride Level 109 mmol/L (98-107) Carbon Dioxide Level 21 mmol/L (21-32) Anion Gap 13 (6-14) Blood Urea Nitrogen 36 mg/dL (7-20) Creatinine 2.9 mg/dL (0.6-1.0) Estimated GFR (Cockcroft-Gault) 16.3 Glucose Level 113 mg/dL (70-99) Calcium Level 8.3 mg/dL (8.5-10.1) Phosphorus Level 4.8 mg/dL (2.6-4.7) Magnesium Level 1.7 mg/dL (1.8-2.4) Iron Level 51 ug/dL (50-170) Total Iron Binding Capacity 155 ug/dL (250-450) Iron Saturation 33 % (15-34) Albumin 1.6 g/dL (3.4-5.0) Test 03/31/17 16:35 03/31/17 21:15 04/01/17 03:50 04/01/17 08:09 Glucose (Fingerstick) 162 mg/dL (70-99) 86 mg/dL (70-99) 122 mg/dL (70-99) Sodium Level 142 mmol/L (136-145) Potassium Level 3.8 mmol/L (3.5-5.1) Chloride Level 109 mmol/L (98-107) Carbon Dioxide Level 20 mmol/L (21-32) Anion Gap 13 (6-14) Blood Urea Nitrogen 37 mg/dL (7-20) Creatinine 2.9 mg/dL (0.6-1.0) Estimated GFR (Cockcroft-Gault) 16.3 Glucose Level 89 mg/dL (70-99) Calcium Level 8.4 mg/dL (8.5-10.1) Phosphorus Level 4.2 mg/dL (2.6-4.7) Magnesium Level 1.9 mg/dL (1.8-2.4) Albumin 2.2 g/dL (3.4-5.0) Laboratory Tests Test 03/31/17 11:36 03/31/17 16:35 03/31/17 21:15 04/01/17 03:50 Glucose (Fingerstick) 212 mg/dL (70-99) 162 mg/dL (70-99) 86 mg/dL (70-99) Sodium Level 142 mmol/L (136-145) Potassium Level 3.8 mmol/L (3.5-5.1) Chloride Level 109 mmol/L (98-107) Carbon Dioxide Level 20 mmol/L (21-32) Anion Gap 13 (6-14) Blood Urea Nitrogen 37 mg/dL (7-20) Creatinine 2.9 mg/dL (0.6-1.0) Estimated GFR (Cockcroft-Gault) 16.3 Glucose Level 89 mg/dL (70-99) Calcium Level 8.4 mg/dL (8.5-10.1) Phosphorus Level 4.2 mg/dL (2.6-4.7) Magnesium Level 1.9 mg/dL (1.8-2.4) Albumin 2.2 g/dL (3.4-5.0) Test 04/01/17 08:09 Glucose (Fingerstick) 122 mg/dL (70-99) Microbiology 03/30/17 Blood Culture - Preliminary, Resulted NO GROWTH AFTER 1 DAY Medications Current Medications Cefazolin Sodium (Ancef Im) 1 gm 1X ONCE IM Last administered on 03/30/17 01: 30; Start 03/30/17 at 02:00; Stop 03/30/17 at 02:01; Status DC Hydromorphone HCl (Dilaudid) 1 mg 1X ONCE IM Last administered on 03/30/17 01 :29; Start 03/30/17 at 02:00; Stop 03/30/17 at 02:01; Status DC Ondansetron HCl (Zofran Odt) 4 mg 1X ONCE PO Last administered on 03/30/17 01 :29; Start 03/30/17 at 01:30; Stop 03/30/17 at 01:31; Status DC Ondansetron HCl (Zofran Odt) 4 mg 1X ONCE PO Last administered on 03/30/17 02 :13; Start 03/30/17 at 02:30; Stop 03/30/17 at 02:31; Status DC Metoclopramide HCl (Reglan) 10 mg 1X ONCE IV Last administered on 03/30/17 03 :25; Start 03/30/17 at 04:00; Stop 03/30/17 at 04:01; Status DC Sodium Chloride 1,000 ml @ 1,000 mls/hr 1X ONCE IV Last administered on 03:22; Start 03/30/17 at 04:00; Stop 03/30/17 at 19:25; Status DC Ondansetron HCl (Zofran) 4 mg 1X ONCE IV Last administered on 03/30/17 04:55 ; Start 03/30/17 at 05:15; Stop 03/30/17 at 05:16; Status DC Ondansetron HCl (Zofran) 4 mg PRN Q4HRS PRN IV NAUSEA/VOMITING; Start 03/30/17 at 05:45; Stop 03/31/17 at 05:44; Status DC Sodium Chloride 1,000 ml @ 100 mls/hr Q10H IV Last administered on 03/30/17 07:27; Start 03/30/17 at 05:36; Stop 03/30/17 at 17:17; Status DC Cefazolin Sodium 1 gm/Sodium Chloride 50 ml @ 100 mls/hr Q8HRS IV Last administered on 03/30/17 07:26; Start 03/30/17 at 06:00; Stop 03/30/17 at 10:24 ; Status DC Amlodipine Besylate (Norvasc) 10 mg 1X ONCE PO Last administered on 03/30/17 08:15; Start 03/30/17 at 06:30; Stop 03/30/17 at 06:31; Status DC Lisinopril (Prinivil) 20 mg 1X ONCE PO Last administered on 03/30/17 08:13; Start 03/30/17 at 06:30; Stop 03/30/17 at 06:31; Status DC Hydralazine HCl (Apresoline) 5 mg 1X ONCE IVP ; Start 03/30/17 at 07:00; Stop 03/30/17 at 07:01; Status DC Diphenhydramine HCl (Benadryl) 25 mg 1X ONCE IVP Last administered on 08:16; Start 03/30/17 at 07:00; Stop 03/30/17 at 07:01; Status DC Prochlorperazine Edisylate (Compazine) 10 mg 1X ONCE IV Last administered on 08:15; Start 03/30/17 at 07:00; Stop 03/30/17 at 07:01; Status DC Ondansetron HCl (Zofran) 8 mg PRN Q8HRS PRN IV NAUSEA/VOMITING; Start 03/30/17 at 08:15 Amlodipine Besylate (Norvasc) 10 mg DAILY PO Last administered on 04/01/17 08: 24; Start 03/30/17 at 09:00 Atorvastatin Calcium (Lipitor) 20 mg HS PO Last administered on 03/31/17 21:28 ; Start 03/30/17 at 21:00 Citalopram Hydrobromide (CeleXA) 20 mg DAILY PO Last administered on 04/01/17 08:23; Start 03/30/17 at 09:00 Hydralazine HCl (Apresoline) 50 mg TID PO Last administered on 03/31/17 07:33 ; Start 03/30/17 at 09:00; Stop 03/31/17 at 11:25; Status DC Insulin Aspart (NovoLOG) 12 units TIDAC SQ Last administered on 04/01/17 08:42 ; Start 03/30/17 at 11:30 Lisinopril (Prinivil) 20 mg DAILY PO Last administered on 03/31/17 07:36; Start 03/30/17 at 09:00; Stop 03/31/17 at 11:25; Status DC Meclizine HCl (Antivert) 12.5 mg PRN TID PRN PO NAUSEA; Start 03/30/17 at 08:15 Metformin HCl (Glucophage Xr) 500 mg DAILYWBKFT PO ; Start 03/30/17 at 09:00; Stop 03/30/17 at 09:47; Status DC Brimonidine Tartrate (Alphagan) 1 drop BID OS Last administered on 04/01/17 08 :30; Start 03/30/17 at 10:00 Insulin Detemir (Levemir) 24 units QHS SQ ; Start 03/30/17 at 21:00 Dexamethasone (Maxidex) 1 drop PRN QID PRN OU Swollen eyes Last administered on 03/31/17 08:11; Start 03/30/17 at 10:00 Pregabalin (Lyrica) 100 mg BID PO Last administered on 04/01/17 08:25; Start 03/30/17 at 09:00 Sodium Chloride 1,000 ml @ 100 mls/hr Q10H IV Last administered on 03/31/17 05:30; Start 03/30/17 at 09:15; Stop 03/31/17 at 11:25; Status DC Insulin Aspart (NovoLOG) 0-9 UNITS TIDWMEALS SQ Last administered on 03/31/17 18:41; Start 03/30/17 at 12:00 Dextrose (Dextrose 50%-Water Syringe) 12.5 gm PRN Q15MIN PRN IV SEE COMMENTS; Start 03/30/17 at 09:15 Enoxaparin Sodium (Lovenox Per Pharmacy Prophylaxis Dosing) 1 each PRN DAILY PRN MC SEE COMMENTS; Start 03/30/17 at 10:00 Timolol Maleate (Timoptic 0.5% [facility]) 1 drop BID OS Last administered on 08:30; Start 03/30/17 at 10:00 Enoxaparin Sodium (Lovenox 30mg Syringe) 30 mg Q24H SQ Last administered on 13:58; Start 03/30/17 at 11:00 Amoxicillin/ Clavulanate Potassium (Augmentin 500/ 125mg) 1 tab BID PO Last administered on 04/01/17 08:24; Start 03/30/17 at 11:00 Magnesium Sulfate/ Dextrose 50 ml @ 25 mls/hr PRN DAILY PRN IV for Mag < 1.7 on am labs; Start 03/30/17 at 10:45 Aspirin (Ecotrin) 325 mg DAILYWBKFT PO Last administered on 03/31/17 07:34; Start 03/30/17 at 12:00 Famotidine (Pepcid) 20 mg QHS PO Last administered on 03/31/17 21:28; Start at 21:00 Acetaminophen (Tylenol) 650 mg PRN Q6HRS PRN PO HEADACHE Last administered on 18:48; Start 03/30/17 at 11:45 Gabapentin (Neurontin) 100 mg QHS PO Last administered on 03/31/17 21:28; Start 03/30/17 at 14:00 Aspirin (Children'S Aspirin) 81 mg DAILYWBKFT PO ; Start 03/31/17 at 08:00; Status UNV Potassium Chloride (Klor-Con) 20 meq 1X ONCE PO Last administered on 09:26; Start 03/31/17 at 09:00; Stop 03/31/17 at 09:01; Status DC Magnesium Sulfate/ Dextrose 100 ml @ 100 mls/hr 1X ONCE IV Last administered on 03/31/17 09:27; Start 03/31/17 at 09:00; Stop 03/31/17 at 09:59; Status DC Polyethylene Glycol (miraLAX PACKET) 17 gm DAILY PO Last administered on 08:26; Start 03/31/17 at 09:30 Docusate Sodium (Colace) 100 mg PRN DAILY PRN PO CONSTIPATION; Start 03/31/17 at 10:15 Polyethylene Glycol (miraLAX PACKET) 17 gm PRN DAILY PRN PO CONSTIPATION; Start 03/31/17 at 10:15 Hydralazine HCl (Apresoline) 50 mg QIDPRN PRN PO High Blood Pressure.; Start at 09:00 Lisinopril (Prinivil) 40 mg DAILY PO Last administered on 04/01/17 08:23; Start 03/31/17 at 12:00 Darbepoetin Rogelio (Aranesp) 60 mcg We SQ Last administered on 03/31/17 21:31; Start 03/31/17 at 21:00 Potassium Chloride (Klor-Con) 40 meq 1X ONCE PO Last administered on 13:57; Start 03/31/17 at 11:30; Stop 03/31/17 at 11:31; Status DC Albumin Human 100 ml @ 100 mls/hr TID IV Last administered on 04/01/17 08:30 ; Start 03/31/17 at 14:00; Stop 04/02/17 at 09:59 Active Scripts Active [place] 5-325 Tablet (Acetaminophen/Hydrocodone Bitart) 1 Each Tablet 1 Tab PO QID PRN Keflex (Cephalexin) 500 Mg Capsule 500 Mg PO QID 10 Days Reported Furosemide 40 Mg Tablet 40 Mg PO DAILY Macrobid 100 Mg Capsule (Nitrofurantoin Monohyd/M-Cryst) 100 Mg Capsule 100 Mg PO HS Lyrica (Pregabalin) 20 Mg/1 Ml Solution 100 Mg PO BID 30 Days Metformin Hcl Er (Metformin Hcl) 500 Mg Tab.er.24h 500 Mg PO DAILYWBKFT Combigan Eye Drops (Brimonidine Tartrate/Timolol) 5 Ml Drops 5 Ml OS BID Hydralazine Hcl 50 Mg Tablet 1 Tab PO TID Citalopram Hbr (Citalopram Hydrobromide) 20 Mg Tablet 1 Tab PO DAILY Pred Forte (Prednisolone Acetate) 1 Ml Drops.susp 1 Drop OU QID PRN Novolog Flexpen (Insulin Aspart) 100 Unit/1 Ml Insuln.pen 12 Unit SQ TIDAC Meclizine Hcl 12.5 Mg Tablet 1 Tab PO TID PRN Atorvastatin Calcium 20 Mg Tablet 20 Mg PO HS Levemir (Insulin Detemir) 100 Unit/1 Ml Vial 24 Unit SQ HS Norvasc (Amlodipine Besylate) 10 Mg Tablet 1 Tab PO DAILY Lisinopril 20 Mg Tablet 1 Tab PO DAILY Vitals/I & O Vital Sign - Last 24 Hours 03/31/17 03/31/17 03/31/17 03/31/17 13:57 15:00 19:07 19:40 Temp 98.6 98.0 98.6 98.0 Pulse 74 79 81 Resp 18 18 B/P (MAP) 122/60 150/56 (87) 156/77 (103) Pulse Ox 94 94 O2 Delivery Room Air Room Air Room Air 03/31/17 04/01/17 04/01/17 04/01/17 23:25 03:07 07:00 08:23 Temp 97.9 98.1 98.7 97.9 98.1 98.7 Pulse 82 84 91 91 Resp 18 18 16 B/P (MAP) 151/74 (99) 202/84 (123) 215/91 (132) 215/91 Pulse Ox 92 92 82 O2 Delivery Room Air Room Air Room Air 04/01/17 08:24 Pulse 91 B/P (MAP) 215/91 Intake and Output 03/31/17 03/31/17 04/01/17 14:59 22:59 06:59 Intake Total 1565 ml 500 ml Balance 1565 ml 500 ml ZULEYMA BRUCE MD April 01, 2017 11:07
--- NOTE | 2017-04-01 11:10 | PDOC ---
Subjective: Subjective: No n/v, abd pain, issues w/ stooling. Objective: Objective: Seen w/ Dr. Parks. Vital Signs: Vital Signs Date Time Temp Pulse Resp B/P (MAP) Pulse Ox O2 Delivery O2 Flow Rate FiO2 04/01/17 08:24 91 215/91 04/01/17 07:00 98.7 16 82 Room Air 98.7 Labs: Laboratory Tests Test 03/31/17 11:36 03/31/17 16:35 03/31/17 21:15 04/01/17 03:50 Glucose (Fingerstick) 212 mg/dL 162 mg/dL 86 mg/dL Sodium Level 142 mmol/L Potassium Level 3.8 mmol/L Chloride Level 109 mmol/L Carbon Dioxide Level 20 mmol/L Anion Gap 13 Blood Urea Nitrogen 37 mg/dL Creatinine 2.9 mg/dL Estimated GFR (Cockcroft-Gault) 16.3 Glucose Level 89 mg/dL Calcium Level 8.4 mg/dL Phosphorus Level 4.2 mg/dL Magnesium Level 1.9 mg/dL Albumin 2.2 g/dL Test 04/01/17 08:09 Glucose (Fingerstick) 122 mg/dL PE: GEN: NAD ABD: NABS, S/ND/NT NEURO/PSYCH: drowsy, difficulty waking A/P: N/v - resolved -h/o GERD, h/o DM -on H2 jas, historically improves symptoms -- Continue same per GI. AYLEEN RICE April 01, 2017 11:10
--- NOTE | 2017-04-01 11:21 | PDOC ---
SUBJECTIVE ROS CKD / ? MYAH Doing OK Overall; somewhat drowsy currently ; she claims she did not sleep well last noc. Apetite is good CVS: no Orthopnea, no CP RESP: + SOB, ? PETER GI: no Nausea, no Vomiting : no Dysuria, no Urgency OBJECTIVE Vital Signs Vital Signs Date Time Temp Pulse Resp B/P (MAP) Pulse Ox O2 Delivery O2 Flow Rate FiO2 04/01/17 08:24 91 215/91 04/01/17 07:00 98.7 16 82 Room Air 98.7 I & 0 Intake and Output 04/01/17 07:00 Intake Total 2065 ml Balance 2065 ml Intake Oral 800 ml IV Total 1265 ml # Voids 5 PHYSICAL EXAM Physical Exam General Appearance: Awake Alert Oriented x 3 In no Distress Eyes: Ch Blindness (legal) Conjunctiva Normal EN: No EN Drainage Mucous Memb. moist Neck: no JVD min JVP Supple no Thyromegaly CVS: S1 S2 + Murmur No Gallop No Rub +2 Edema Resp: no Rales no Rhonchi no Acc. Muscle use GI: BS +ve NO Bruit Non Tender Non Distended; Obese : no CVA tenderness; no Suprapubic Tenderness Neuroa No asterixis per se Assessment & Plan MYAH - ? due to infection and/ or due to recent NSAID use for facial pain. Baseline Creat NA from PCP office yet. Current FLuid and E-lyte status does not necessitate emergent need for Dialysis. Will re-evaluate for Dialysis in am - Creat is stable today. UO is not well recorded, Pt refusing brice or dialysis currently. 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 for hgb < 7; start EPO sev HTN: (OA) - now better controlled. Current BP meds reviewed. See orders for changes. suspect sev Orthostasis Bone & Mineral: Check Vit D for ^ed PTH Edema - suspect due to Low Alb, Hepatitis panel noted (suspect prior Vx); IV Alb with Lasix DM-2 with shelter insulin use - with DR (high likelihood of DM-2 Nephropathy ) COMMENT/RELEVANT DATA Meds Current Medications Medications (Trade) Dose Ordered Sig/Roshan Start Time Stop Time Status Last Admin Dose Admin Acetaminophen (Tylenol) 650 mg PRN Q6HRS PRN 03/30/17 11:45 03/31/17 18:48 650 MG Albumin Human 100 ml @ 100 mls/hr TID 03/31/17 14:00 04/02/17 09:59 04/01/17 08:30 100 MLS/HR Amlodipine Besylate (Norvasc) 10 mg DAILY 03/30/17 09:00 04/01/17 08:24 10 MG Amoxicillin/ Clavulanate Potassium (Augmentin 500/ 125mg) 1 tab BID 03/30/17 11:00 04/01/17 08:24 1 TAB Aspirin (Children'S Aspirin) 81 mg DAILYWBKFT 03/31/17 08:00 UNV Aspirin (Ecotrin) 325 mg DAILYWBKFT 03/30/17 12:00 03/31/17 07:34 325 MG Atorvastatin Calcium (Lipitor) 20 mg HS 03/30/17 21:00 03/31/17 21:28 20 MG Brimonidine Tartrate (Alphagan) 1 drop BID 03/30/17 10:00 04/01/17 08:30 1 DROP Cefazolin Sodium (Ancef Im) 1 gm 1X ONCE 03/30/17 02:00 03/30/17 02:01 DC 03/30/17 01:30 1 GM Cefazolin Sodium 1 gm/Sodium Chloride 50 ml @ 100 mls/hr Q8HRS 03/30/17 06:00 03/30/17 10:24 DC 03/30/17 07:26 100 MLS/HR Citalopram Hydrobromide (CeleXA) 20 mg DAILY 03/30/17 09:00 04/01/17 08:23 20 MG Darbepoetin Rogelio (Aranesp) 60 mcg We 03/31/17 21:00 03/31/17 21:31 60 MCG Dexamethasone (Maxidex) 1 drop PRN QID PRN 03/30/17 10:00 03/31/17 08:11 1 DROP Dextrose (Dextrose 50%-Water Syringe) 12.5 gm PRN Q15MIN PRN 03/30/17 09:15 Diphenhydramine HCl (Benadryl) 25 mg 1X ONCE 03/30/17 07:00 03/30/17 07:01 DC 03/30/17 08:16 25 MG Docusate Sodium (Colace) 100 mg PRN DAILY PRN 03/31/17 10:15 Enoxaparin Sodium (Lovenox 30mg Syringe) 30 mg Q24H 03/30/17 11:00 03/31/17 13:58 30 MG Enoxaparin Sodium (Lovenox Per Pharmacy Prophylaxis Dosing) 1 each PRN DAILY PRN 03/30/17 10:00 Famotidine (Pepcid) 20 mg QHS 03/30/17 21:00 03/31/17 21:28 20 MG Gabapentin (Neurontin) 100 mg QHS 03/30/17 14:00 03/31/17 21:28 100 MG Hydralazine HCl (Apresoline) 50 mg QIDPRN PRN 04/01/17 09:00 Hydromorphone HCl (Dilaudid) 1 mg 1X ONCE 03/30/17 02:00 03/30/17 02:01 DC 03/30/17 01:29 1 MG Insulin Aspart (NovoLOG) 0-9 UNITS TIDWMEALS 03/30/17 12:00 03/31/17 18:41 4 UNITS Insulin Detemir (Levemir) 24 units QHS 03/30/17 21:00 Lisinopril (Prinivil) 40 mg DAILY 03/31/17 12:00 04/01/17 08:23 40 MG Magnesium Sulfate/ Dextrose 100 ml @ 100 mls/hr 1X ONCE 03/31/17 09:00 03/31/17 09:59 DC 03/31/17 09:27 100 MLS/HR Meclizine HCl (Antivert) 12.5 mg PRN TID PRN 03/30/17 08:15 Metformin HCl (Glucophage Xr) 500 mg DAILYWBKFT 03/30/17 09:00 03/30/17 09:47 DC Metoclopramide HCl (Reglan) 10 mg 1X ONCE 03/30/17 04:00 03/30/17 04:01 DC 03/30/17 03:25 10 MG Ondansetron HCl (Zofran Odt) 4 mg 1X ONCE 03/30/17 02:30 03/30/17 02:31 DC 03/30/17 02:13 4 MG Ondansetron HCl (Zofran) 8 mg PRN Q8HRS PRN 03/30/17 08:15 Polyethylene Glycol (miraLAX PACKET) 17 gm PRN DAILY PRN 03/31/17 10:15 Potassium Chloride (Klor-Con) 40 meq 1X ONCE 03/31/17 11:30 03/31/17 11:31 DC 03/31/17 13:57 40 MEQ Pregabalin (Lyrica) 100 mg BID 03/30/17 09:00 04/01/17 08:25 100 MG Prochlorperazine Edisylate (Compazine) 10 mg 1X ONCE 03/30/17 07:00 03/30/17 07:01 DC 03/30/17 08:15 10 MG Sodium Chloride 1,000 ml @ 100 mls/hr Q10H 03/30/17 09:15 03/31/17 11:25 DC 03/31/17 05:30 100 MLS/HR Timolol Maleate (Timoptic 0.5% Oph) 1 drop BID 03/30/17 10:00 04/01/17 08:30 1 DROP Lab Laboratory Tests Test 03/31/17 11:36 03/31/17 16:35 03/31/17 21:15 04/01/17 03:50 Glucose (Fingerstick) 212 mg/dL (70-99) 162 mg/dL (70-99) 86 mg/dL (70-99) Sodium Level 142 mmol/L (136-145) Potassium Level 3.8 mmol/L (3.5-5.1) Chloride Level 109 mmol/L (98-107) Carbon Dioxide Level 20 mmol/L (21-32) Anion Gap 13 (6-14) Blood Urea Nitrogen 37 mg/dL (7-20) Creatinine 2.9 mg/dL (0.6-1.0) Estimated GFR (Cockcroft-Gault) 16.3 Glucose Level 89 mg/dL (70-99) Calcium Level 8.4 mg/dL (8.5-10.1) Phosphorus Level 4.2 mg/dL (2.6-4.7) Magnesium Level 1.9 mg/dL (1.8-2.4) Albumin 2.2 g/dL (3.4-5.0) Test 04/01/17 08:09 Glucose (Fingerstick) 122 mg/dL (70-99) DAVID REY MD April 01, 2017 11:21
[2017-04-01] MEDS: SODIUM BICARBONATE 650 MG TABLET. PO SCH ×2 (12:05→21:51)
[2017-04-01] MEDS: ASPIRIN ENTERIC COATED 325 MG TABLET.DR. PO SCH (12:05)
[2017-04-01] MEDS: ENOXAPARIN 30 MG/0.3 ML SYRINGE. SQ SCH (12:11)
[2017-04-01] MEDS: FUROSEMIDE 40 MG/4 ML VIAL. IVP SCH (14:42)
[2017-04-01 15:00] VITALS: BP 173/73
[2017-04-01 19:24] VITALS: BP 192/80
[2017-04-01] MEDS ORDERED: ZOLPIDEM 5 MG TABLET. PO ONE (20:45)
[2017-04-01] MEDS: ATORVASTATIN CALCIUM 20 MG TABLET PO SCH (21:52)
[2017-04-01] MEDS: GABAPENTIN 100 MG CAPSULE. PO SCH (21:52)
[2017-04-01] MEDS: FAMOTIDINE 20 MG TABLET. PO SCH (21:52)
[2017-04-01] MEDS: INSULIN DETEMIR 300 UNITS/3 ML INSULN.PEN. SQ SCH (22:07)
[2017-04-01 23:03] VITALS: BP 174/82
[2017-04-02] VITALS (7 sets, daily range): BP systolic 172–192; BP diastolic 76–86
[2017-04-02 04:33] LABS: BASO # 0.1 x10^3/uL (0.0-0.2); BASO % 1 % (0-3); EOS % 2 % (0-3); HEMATOCRIT 25.4 % (36.0-47.0); HEMOGLOBIN 8.5 g/dL (12.0-15.5); LYMPH # 2.7 x10^3/uL (1.0-4.8); LYMPH % 27 % (24-48); MEAN CORPUSCULAR HEMOGLOBIN 30 pg (25-35); MEAN CORPUSCULAR HGB CONC 34 g/dL (31-37); MEAN CORPUSCULAR VOLUME 89 fL (79-100); MONO % 7 % (0-9); NEUT % 63 % (31-73); PLATELET COUNT 230 x10^3/uL (140-400); RED BLOOD COUNT 2.86 x10^6/uL (3.50-5.40); RED CELL DISTRIBUTION WIDTH 13.5 % (11.5-14.5)
[2017-04-02] MEDS: ACETAMINOPHEN 325 MG TABLET. PO PRN ×3 (04:42→21:16)
[2017-04-02 04:57] LABS: ALBUMIN 3.1 g/dL (3.4-5.0); CALCIUM 8.6 mg/dL (8.5-10.1); GFR 15.7; PHOSPHORUS 4.1 mg/dL (2.6-4.7); POTASSIUM 3.8 mmol/L (3.5-5.1)
--- NOTE | 2017-04-02 05:23 | RAD ---
INDICATION: Head pain and dizziness COMPARISON: None TECHNIQUE: Axial CT images obtained through the head. One or more of the following individualized dose reduction techniques were utilized for this examination: 1. Automated exposure control; 2. Adjustment of the mA and/or kV according to patient size; 3. Use of iterative reconstruction technique. FINDINGS: No midline shift. Ventricles and sulci are prominent. Basilar cistern patent. No gross hemorrhage No displaced skull fracture. Regions of low attenuation of the white matter. This is most confluent within the right cerebral hemisphere but there is a large amount left seen as well. IMPRESSION: No acute intracranial hemorrhage. Regions of low attenuation of the white matter. Nonspecific but frequently secondary to small vessel ischemic disease although sequela of migraine or demyelination also in differential. This is more than commonly seen for the patient's age. Would consider a follow-up MRI with and without intravenous contrast to further evaluate and to ensure that none of this is secondary to regions of edema from causes such as a mass. Partial opacification a partially seen right maxillary sinus. Could be from sinus congestion or sinusitis. Electronically signed by: Ricardo Arcos (April 02, 2017 05:21:19)
[2017-04-02] MEDS: INSULIN ASPART 300 UNITS/3 ML INSULN.PEN SQ SCH ×5 (08:00→17:00)
--- NOTE | 2017-04-02 08:06 | PDOC ---
Infectious Disease Note Subjective Subjective S/p fall early this am. CT scan neg. States ok now Better. Less swelling and sinus discomfort. Tolerating abx ROS ROS GEN: Denies fevers, chills, sweats HEENT: Denies blurred vision, sore throat CV: Denies chest pain RESP: Denies shortness of air, cough GI: Denies n/v/d NEURO: Denies confusion, dizziness MSK: Denies weakness, joint pain/swelling Vital Sign Vital Signs Vital Signs Date Time Temp Pulse Resp B/P (MAP) Pulse Ox O2 Delivery O2 Flow Rate FiO2 04/02/17 07:00 98.2 90 26 189/86 (120) 90 Nasal Cannula 3.0 98.2 Physical Exam PHYSICAL EXAM GENERAL: NAD, Alert HEENT: PERRL, OC/OP -clear. Small ? raised area on upper Occipital. Min if any tenderness. No erythema/Warmth/Fluctuance NECK: Supple, no JVD, no LN LUNGS: Clear HEART: S1S2, no gallop, no murmur ABD: Soft, NT, no organomegaly, no rebound EXT: No edema, no cyanosis DET[employer]IVE [employer] SECTION: Alert, oriented to place/year/self, no focal neurologic deficit SKIN: No rash IV: ok Labs Lab Laboratory Tests Test 04/01/17 08:09 04/01/17 10:59 04/01/17 15:59 04/01/17 16:41 Glucose (Fingerstick) 122 mg/dL (70-99) 127 mg/dL (70-99) 59 mg/dL (70-99) 92 mg/dL (70-99) Test 04/01/17 20:47 04/02/17 03:52 04/02/17 04:15 04/02/17 07:19 Glucose (Fingerstick) 164 mg/dL (70-99) 89 mg/dL (70-99) 54 mg/dL (70-99) White Blood Count 10.0 x10^3/uL (4.0-11.0) Red Blood Count 2.86 x10^6/uL (3.50-5.40) Hemoglobin 8.5 g/dL (12.0-15.5) Hematocrit 25.4 % (36.0-47.0) Mean Corpuscular Volume 89 fL (79-100) Mean Corpuscular Hemoglobin 30 pg (25-35) Mean Corpuscular Hemoglobin Concent 34 g/dL (31-37) Red Cell Distribution Width 13.5 % (11.5-14.5) Platelet Count 230 x10^3/uL (140-400) Neutrophils (%) (Auto) 63 % (31-73) Lymphocytes (%) (Auto) 27 % (24-48) Monocytes (%) (Auto) 7 % (0-9) Eosinophils (%) (Auto) 2 % (0-3) Basophils (%) (Auto) 1 % (0-3) Neutrophils # (Auto) 6.3 x10^3uL (1.8-7.7) Lymphocytes # (Auto) 2.7 x10^3/uL (1.0-4.8) Monocytes # (Auto) 0.7 x10^3/uL (0.0-1.1) Eosinophils # (Auto) 0.2 x10^3/uL (0.0-0.7) Basophils # (Auto) 0.1 x10^3/uL (0.0-0.2) Sodium Level 145 mmol/L (136-145) Potassium Level 3.8 mmol/L (3.5-5.1) Chloride Level 110 mmol/L (98-107) Carbon Dioxide Level 21 mmol/L (21-32) Anion Gap 14 (6-14) Blood Urea Nitrogen 36 mg/dL (7-20) Creatinine 3.0 mg/dL (0.6-1.0) Estimated GFR (Cockcroft-Gault) 15.7 Glucose Level 89 mg/dL (70-99) Calcium Level 8.6 mg/dL (8.5-10.1) Phosphorus Level 4.1 mg/dL (2.6-4.7) Magnesium Level 1.9 mg/dL (1.8-2.4) Albumin 3.1 g/dL (3.4-5.0) Objective Assessment S/p fall - seems ok currently Facial Cellulitis - greatly improved Poor dentition Sinusitis Sulfa allergy CKD DM - not controlled yet but just admitted 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
[2017-04-02] MEDS: FUROSEMIDE 40 MG/4 ML VIAL. IVP SCH ×3 (09:00→17:48)
[2017-04-02] MEDS: ALBUMIN HUMAN 25% 100 ML IV SCH (09:00)
[2017-04-02] MEDS: CITALOPRAM 20 MG TABLET. PO SCH (09:39)
[2017-04-02] MEDS: AMOXICILLIN/K CLAV 500/125MG TABLET. PO SCH ×2 (09:39→21:17)
[2017-04-02] MEDS: LISINOPRIL 20 MG TABLET PO SCH (09:40)
[2017-04-02] MEDS: PREGABALIN 50 MG CAPSULE PO SCH ×2 (09:40→21:17)
[2017-04-02] MEDS: amLODIPine BESYLATE 10 MG TABLET PO SCH (09:40)
[2017-04-02] MEDS: SODIUM BICARBONATE 650 MG TABLET. PO SCH ×2 (09:41→21:18)
[2017-04-02] MEDS: TIMOLOL 0.5% OPHTH SOLUTION 5ML BOTTLE. OS SCH ×2 (09:48→21:19)
[2017-04-02] MEDS: BRIMONIDINE 0.2% OPHTH SOLUTION 5ML BOTTLE. OS SCH ×2 (09:48→21:19)
[2017-04-02] MEDS: POLYETHYLENE GLYCOL 3350 17 GM PACKET. PO SCH (09:52)
--- NOTE | 2017-04-02 10:56 | PDOC ---
PROGRESS NOTES Chief Complaint Chief Complaint cellulitis facial cellulitis and sinusitis, nausea and vomiting, dehdration, vasomotor nephropathy on CKD anemia DM2, goog control, A1c is 7.1, FSBS > 400 on admit LE edema, severe malnutrition, serum albumin 1.7, w/ BMI 30 large proteinuria, suspect nephrotic range, 24 hour done today at 1pm History of Present Illness History of Present Illness unaable to re-establish new peripheral IV, RN req. PICC, I discussed with patient, she declined, will try to change meds to PO, renal following, w/u nephrosis, no vomiting, feels better, no abd pain, tolerated breakfast well she feels she is making a large amount of urine Vitals Vitals Vital Signs Date Time Temp Pulse Resp B/P (MAP) Pulse Ox O2 Delivery O2 Flow Rate FiO2 04/02/17 10:28 98.4 84 24 180/84 (116) 93 Nasal Cannula 4.0 98.4 Physical Exam General: Alert, Oriented X3, Cooperative, No acute distress Heart: Regular rate, No murmurs Lungs: Clear Abdomen: Normal bowel sounds, Soft Extremities: No clubbing, Normal pulses, Other (2+ LE edema) Labs LABS Laboratory Tests Test 04/01/17 10:59 04/01/17 15:59 04/01/17 16:41 04/01/17 20:47 Glucose (Fingerstick) 127 mg/dL (70-99) 59 mg/dL (70-99) 92 mg/dL (70-99) 164 mg/dL (70-99) Test 04/02/17 03:52 04/02/17 04:15 04/02/17 07:19 04/02/17 08:47 Glucose (Fingerstick) 89 mg/dL (70-99) 54 mg/dL (70-99) 71 mg/dL (70-99) White Blood Count 10.0 x10^3/uL (4.0-11.0) Red Blood Count 2.86 x10^6/uL (3.50-5.40) Hemoglobin 8.5 g/dL (12.0-15.5) Hematocrit 25.4 % (36.0-47.0) Mean Corpuscular Volume 89 fL (79-100) Mean Corpuscular Hemoglobin 30 pg (25-35) Mean Corpuscular Hemoglobin Concent 34 g/dL (31-37) Red Cell Distribution Width 13.5 % (11.5-14.5) Platelet Count 230 x10^3/uL (140-400) Neutrophils (%) (Auto) 63 % (31-73) Lymphocytes (%) (Auto) 27 % (24-48) Monocytes (%) (Auto) 7 % (0-9) Eosinophils (%) (Auto) 2 % (0-3) Basophils (%) (Auto) 1 % (0-3) Neutrophils # (Auto) 6.3 x10^3uL (1.8-7.7) Lymphocytes # (Auto) 2.7 x10^3/uL (1.0-4.8) Monocytes # (Auto) 0.7 x10^3/uL (0.0-1.1) Eosinophils # (Auto) 0.2 x10^3/uL (0.0-0.7) Basophils # (Auto) 0.1 x10^3/uL (0.0-0.2) Sodium Level 145 mmol/L (136-145) Potassium Level 3.8 mmol/L (3.5-5.1) Chloride Level 110 mmol/L (98-107) Carbon Dioxide Level 21 mmol/L (21-32) Anion Gap 14 (6-14) Blood Urea Nitrogen 36 mg/dL (7-20) Creatinine 3.0 mg/dL (0.6-1.0) Estimated GFR (Cockcroft-Gault) 15.7 Glucose Level 89 mg/dL (70-99) Calcium Level 8.6 mg/dL (8.5-10.1) Phosphorus Level 4.1 mg/dL (2.6-4.7) Magnesium Level 1.9 mg/dL (1.8-2.4) Albumin 3.1 g/dL (3.4-5.0) Review of Systems Review of Systems some weakness and nausea no vomiting Assessment and Plan Assessmemt and Plan Problems Medical Problems: (1) Dental abscess Status: Acute (2) Facial cellulitis Status: Acute (3) Intractable vomiting Status: Acute Problems: Comment Review of Relevant I have reviewed the following items ari (where applicable) has been applied. Labs Laboratory Tests Test 03/31/17 11:36 03/31/17 16:35 03/31/17 21:15 04/01/17 03:50 Glucose (Fingerstick) 212 mg/dL (70-99) 162 mg/dL (70-99) 86 mg/dL (70-99) Sodium Level 142 mmol/L (136-145) Potassium Level 3.8 mmol/L (3.5-5.1) Chloride Level 109 mmol/L (98-107) Carbon Dioxide Level 20 mmol/L (21-32) Anion Gap 13 (6-14) Blood Urea Nitrogen 37 mg/dL (7-20) Creatinine 2.9 mg/dL (0.6-1.0) Estimated GFR (Cockcroft-Gault) 16.3 Glucose Level 89 mg/dL (70-99) Calcium Level 8.4 mg/dL (8.5-10.1) Phosphorus Level 4.2 mg/dL (2.6-4.7) Magnesium Level 1.9 mg/dL (1.8-2.4) Albumin 2.2 g/dL (3.4-5.0) Test 04/01/17 08:09 04/01/17 10:59 04/01/17 15:59 04/01/17 16:41 Glucose (Fingerstick) 122 mg/dL (70-99) 127 mg/dL (70-99) 59 mg/dL (70-99) 92 mg/dL (70-99) Test 04/01/17 20:47 04/02/17 03:52 04/02/17 04:15 04/02/17 07:19 Glucose (Fingerstick) 164 mg/dL (70-99) 89 mg/dL (70-99) 54 mg/dL (70-99) White Blood Count 10.0 x10^3/uL (4.0-11.0) Red Blood Count 2.86 x10^6/uL (3.50-5.40) Hemoglobin 8.5 g/dL (12.0-15.5) Hematocrit 25.4 % (36.0-47.0) Mean Corpuscular Volume 89 fL (79-100) Mean Corpuscular Hemoglobin 30 pg (25-35) Mean Corpuscular Hemoglobin Concent 34 g/dL (31-37) Red Cell Distribution Width 13.5 % (11.5-14.5) Platelet Count 230 x10^3/uL (140-400) Neutrophils (%) (Auto) 63 % (31-73) Lymphocytes (%) (Auto) 27 % (24-48) Monocytes (%) (Auto) 7 % (0-9) Eosinophils (%) (Auto) 2 % (0-3) Basophils (%) (Auto) 1 % (0-3) Neutrophils # (Auto) 6.3 x10^3uL (1.8-7.7) Lymphocytes # (Auto) 2.7 x10^3/uL (1.0-4.8) Monocytes # (Auto) 0.7 x10^3/uL (0.0-1.1) Eosinophils # (Auto) 0.2 x10^3/uL (0.0-0.7) Basophils # (Auto) 0.1 x10^3/uL (0.0-0.2) Sodium Level 145 mmol/L (136-145) Potassium Level 3.8 mmol/L (3.5-5.1) Chloride Level 110 mmol/L (98-107) Carbon Dioxide Level 21 mmol/L (21-32) Anion Gap 14 (6-14) Blood Urea Nitrogen 36 mg/dL (7-20) Creatinine 3.0 mg/dL (0.6-1.0) Estimated GFR (Cockcroft-Gault) 15.7 Glucose Level 89 mg/dL (70-99) Calcium Level 8.6 mg/dL (8.5-10.1) Phosphorus Level 4.1 mg/dL (2.6-4.7) Magnesium Level 1.9 mg/dL (1.8-2.4) Albumin 3.1 g/dL (3.4-5.0) Test 04/02/17 08:47 Glucose (Fingerstick) 71 mg/dL (70-99) Laboratory Tests Test 04/01/17 10:59 04/01/17 15:59 04/01/17 16:41 04/01/17 20:47 Glucose (Fingerstick) 127 mg/dL (70-99) 59 mg/dL (70-99) 92 mg/dL (70-99) 164 mg/dL (70-99) Test 04/02/17 03:52 04/02/17 04:15 04/02/17 07:19 04/02/17 08:47 Glucose (Fingerstick) 89 mg/dL (70-99) 54 mg/dL (70-99) 71 mg/dL (70-99) White Blood Count 10.0 x10^3/uL (4.0-11.0) Red Blood Count 2.86 x10^6/uL (3.50-5.40) Hemoglobin 8.5 g/dL (12.0-15.5) Hematocrit 25.4 % (36.0-47.0) Mean Corpuscular Volume 89 fL (79-100) Mean Corpuscular Hemoglobin 30 pg (25-35) Mean Corpuscular Hemoglobin Concent 34 g/dL (31-37) Red Cell Distribution Width 13.5 % (11.5-14.5) Platelet Count 230 x10^3/uL (140-400) Neutrophils (%) (Auto) 63 % (31-73) Lymphocytes (%) (Auto) 27 % (24-48) Monocytes (%) (Auto) 7 % (0-9) Eosinophils (%) (Auto) 2 % (0-3) Basophils (%) (Auto) 1 % (0-3) Neutrophils # (Auto) 6.3 x10^3uL (1.8-7.7) Lymphocytes # (Auto) 2.7 x10^3/uL (1.0-4.8) Monocytes # (Auto) 0.7 x10^3/uL (0.0-1.1) Eosinophils # (Auto) 0.2 x10^3/uL (0.0-0.7) Basophils # (Auto) 0.1 x10^3/uL (0.0-0.2) Sodium Level 145 mmol/L (136-145) Potassium Level 3.8 mmol/L (3.5-5.1) Chloride Level 110 mmol/L (98-107) Carbon Dioxide Level 21 mmol/L (21-32) Anion Gap 14 (6-14) Blood Urea Nitrogen 36 mg/dL (7-20) Creatinine 3.0 mg/dL (0.6-1.0) Estimated GFR (Cockcroft-Gault) 15.7 Glucose Level 89 mg/dL (70-99) Calcium Level 8.6 mg/dL (8.5-10.1) Phosphorus Level 4.1 mg/dL (2.6-4.7) Magnesium Level 1.9 mg/dL (1.8-2.4) Albumin 3.1 g/dL (3.4-5.0) Microbiology 03/30/17 Blood Culture - Preliminary, Resulted NO GROWTH AFTER 2 DAYS Medications Current Medications Cefazolin Sodium (Ancef Im) 1 gm 1X ONCE IM Last administered on 03/30/17 01: 30; Start 03/30/17 at 02:00; Stop 03/30/17 at 02:01; Status DC Hydromorphone HCl (Dilaudid) 1 mg 1X ONCE IM Last administered on 03/30/17 01 :29; Start 03/30/17 at 02:00; Stop 03/30/17 at 02:01; Status DC Ondansetron HCl (Zofran Odt) 4 mg 1X ONCE PO Last administered on 03/30/17 01 :29; Start 03/30/17 at 01:30; Stop 03/30/17 at 01:31; Status DC Ondansetron HCl (Zofran Odt) 4 mg 1X ONCE PO Last administered on 03/30/17 02 :13; Start 03/30/17 at 02:30; Stop 03/30/17 at 02:31; Status DC Metoclopramide HCl (Reglan) 10 mg 1X ONCE IV Last administered on 03/30/17 03 :25; Start 03/30/17 at 04:00; Stop 03/30/17 at 04:01; Status DC Sodium Chloride 1,000 ml @ 1,000 mls/hr 1X ONCE IV Last administered on 03:22; Start 03/30/17 at 04:00; Stop 03/30/17 at 19:25; Status DC Ondansetron HCl (Zofran) 4 mg 1X ONCE IV Last administered on 03/30/17 04:55 ; Start 03/30/17 at 05:15; Stop 03/30/17 at 05:16; Status DC Ondansetron HCl (Zofran) 4 mg PRN Q4HRS PRN IV NAUSEA/VOMITING; Start 03/30/17 at 05:45; Stop 03/31/17 at 05:44; Status DC Sodium Chloride 1,000 ml @ 100 mls/hr Q10H IV Last administered on 03/30/17 07:27; Start 03/30/17 at 05:36; Stop 03/30/17 at 17:17; Status DC Cefazolin Sodium 1 gm/Sodium Chloride 50 ml @ 100 mls/hr Q8HRS IV Last administered on 03/30/17 07:26; Start 03/30/17 at 06:00; Stop 03/30/17 at 10:24 ; Status DC Amlodipine Besylate (Norvasc) 10 mg 1X ONCE PO Last administered on 03/30/17 08:15; Start 03/30/17 at 06:30; Stop 03/30/17 at 06:31; Status DC Lisinopril (Prinivil) 20 mg 1X ONCE PO Last administered on 03/30/17 08:13; Start 03/30/17 at 06:30; Stop 03/30/17 at 06:31; Status DC Hydralazine HCl (Apresoline) 5 mg 1X ONCE IVP ; Start 03/30/17 at 07:00; Stop 03/30/17 at 07:01; Status DC Diphenhydramine HCl (Benadryl) 25 mg 1X ONCE IVP Last administered on 08:16; Start 03/30/17 at 07:00; Stop 03/30/17 at 07:01; Status DC Prochlorperazine Edisylate (Compazine) 10 mg 1X ONCE IV Last administered on 08:15; Start 03/30/17 at 07:00; Stop 03/30/17 at 07:01; Status DC Ondansetron HCl (Zofran) 8 mg PRN Q8HRS PRN IV NAUSEA/VOMITING; Start 03/30/17 at 08:15 Amlodipine Besylate (Norvasc) 10 mg DAILY PO Last administered on 04/02/17 09: 40; Start 03/30/17 at 09:00 Atorvastatin Calcium (Lipitor) 20 mg HS PO Last administered on 04/01/17 21:52 ; Start 03/30/17 at 21:00 Citalopram Hydrobromide (CeleXA) 20 mg DAILY PO Last administered on 04/02/17 09:39; Start 03/30/17 at 09:00 Hydralazine HCl (Apresoline) 50 mg TID PO Last administered on 03/31/17 07:33 ; Start 03/30/17 at 09:00; Stop 03/31/17 at 11:25; Status DC Insulin Aspart (NovoLOG) 12 units TIDAC SQ Last administered on 04/01/17 12:13 ; Start 03/30/17 at 11:30; Stop 04/02/17 at 09:41; Status DC Lisinopril (Prinivil) 20 mg DAILY PO Last administered on 03/31/17 07:36; Start 03/30/17 at 09:00; Stop 03/31/17 at 11:25; Status DC Meclizine HCl (Antivert) 12.5 mg PRN TID PRN PO NAUSEA; Start 03/30/17 at 08:15 Metformin HCl (Glucophage Xr) 500 mg DAILYWBKFT PO ; Start 03/30/17 at 09:00; Stop 03/30/17 at 09:47; Status DC Brimonidine Tartrate (Alphagan) 1 drop BID OS Last administered on 04/02/17 09 :48; Start 03/30/17 at 10:00 Insulin Detemir (Levemir) 24 units QHS SQ Last administered on 04/01/17 22:07 ; Start 03/30/17 at 21:00; Stop 04/02/17 at 09:41; Status DC Dexamethasone (Maxidex) 1 drop PRN QID PRN OU Swollen eyes Last administered on 03/31/17 08:11; Start 03/30/17 at 10:00 Pregabalin (Lyrica) 100 mg BID PO Last administered on 04/02/17 09:40; Start 03/30/17 at 09:00 Sodium Chloride 1,000 ml @ 100 mls/hr Q10H IV Last administered on 03/31/17 05:30; Start 03/30/17 at 09:15; Stop 03/31/17 at 11:25; Status DC Insulin Aspart (NovoLOG) 0-9 UNITS TIDWMEALS SQ Last administered on 03/31/17 18:41; Start 03/30/17 at 12:00 Dextrose (Dextrose 50%-Water Syringe) 12.5 gm PRN Q15MIN PRN IV SEE COMMENTS; Start 03/30/17 at 09:15 Enoxaparin Sodium (Lovenox Per Pharmacy Prophylaxis Dosing) 1 each PRN DAILY PRN MC SEE COMMENTS; Start 03/30/17 at 10:00 Timolol Maleate (Timoptic 0.5% [facility]) 1 drop BID OS Last administered on 09:48; Start 03/30/17 at 10:00 Enoxaparin Sodium (Lovenox 30mg Syringe) 30 mg Q24H SQ Last administered on 12:11; Start 03/30/17 at 11:00 Amoxicillin/ Clavulanate Potassium (Augmentin 500/ 125mg) 1 tab BID PO Last administered on 04/02/17 09:39; Start 03/30/17 at 11:00 Magnesium Sulfate/ Dextrose 50 ml @ 25 mls/hr PRN DAILY PRN IV for Mag < 1.7 on am labs; Start 03/30/17 at 10:45 Aspirin (Ecotrin) 325 mg DAILYWBKFT PO Last administered on 04/01/17 12:05; Start 03/30/17 at 12:00 Famotidine (Pepcid) 20 mg QHS PO Last administered on 04/01/17 21:52; Start at 21:00 Acetaminophen (Tylenol) 650 mg PRN Q6HRS PRN PO HEADACHE Last administered on 04:42; Start 03/30/17 at 11:45 Gabapentin (Neurontin) 100 mg QHS PO Last administered on 04/01/17 21:52; Start 03/30/17 at 14:00 Aspirin (Children'S Aspirin) 81 mg DAILYWBKFT PO ; Start 03/31/17 at 08:00; Status UNV Potassium Chloride (Klor-Con) 20 meq 1X ONCE PO Last administered on 09:26; Start 03/31/17 at 09:00; Stop 03/31/17 at 09:01; Status DC Magnesium Sulfate/ Dextrose 100 ml @ 100 mls/hr 1X ONCE IV Last administered on 03/31/17 09:27; Start 03/31/17 at 09:00; Stop 03/31/17 at 09:59; Status DC Polyethylene Glycol (miraLAX PACKET) 17 gm DAILY PO Last administered on 09:52; Start 03/31/17 at 09:30 Docusate Sodium (Colace) 100 mg PRN DAILY PRN PO CONSTIPATION; Start 03/31/17 at 10:15 Polyethylene Glycol (miraLAX PACKET) 17 gm PRN DAILY PRN PO CONSTIPATION; Start 03/31/17 at 10:15 Hydralazine HCl (Apresoline) 50 mg QIDPRN PRN PO High Blood Pressure. Last administered on 04/01/17 19:23; Start 04/01/17 at 09:00 Lisinopril (Prinivil) 40 mg DAILY PO Last administered on 04/02/17 09:40; Start 03/31/17 at 12:00 Darbepoetin Rogelio (Aranesp) 60 mcg We SQ Last administered on 03/31/17 21:31; Start 03/31/17 at 21:00 Potassium Chloride (Klor-Con) 40 meq 1X ONCE PO Last administered on 13:57; Start 03/31/17 at 11:30; Stop 03/31/17 at 11:31; Status DC Albumin Human 100 ml @ 100 mls/hr TID IV Last administered on 04/01/17 21:50 ; Start 03/31/17 at 14:00; Stop 04/02/17 at 09:59; Status DC Furosemide (Lasix) 40 mg BID92 IVP Last administered on 04/01/17 14:42; Start 04/01/17 at 14:00 Sodium Bicarbonate (Sodium Bicarbonate) 1,300 mg BID PO Last administered on 09:41; Start 04/01/17 at 12:00 Zolpidem Tartrate (Ambien) 5 mg 1X ONCE PO Last administered on 04/01/17 21: 50; Start 04/01/17 at 20:45; Stop 04/01/17 at 20:46; Status DC Insulin Aspart (NovoLOG) 9 units TIDAC SQ ; Start 04/02/17 at 11:30 Insulin Detemir (Levemir) 17 units QHS SQ ; Start 04/02/17 at 21:00 Active Scripts Active [place] 5-325 Tablet (Acetaminophen/Hydrocodone Bitart) 1 Each Tablet 1 Tab PO QID PRN Keflex (Cephalexin) 500 Mg Capsule 500 Mg PO QID 10 Days Reported Furosemide 40 Mg Tablet 40 Mg PO DAILY Macrobid 100 Mg Capsule (Nitrofurantoin Monohyd/M-Cryst) 100 Mg Capsule 100 Mg PO HS Lyrica (Pregabalin) 20 Mg/1 Ml Solution 100 Mg PO BID 30 Days Metformin Hcl Er (Metformin Hcl) 500 Mg Tab.er.24h 500 Mg PO DAILYWBKFT Combigan Eye Drops (Brimonidine Tartrate/Timolol) 5 Ml Drops 5 Ml OS BID Hydralazine Hcl 50 Mg Tablet 1 Tab PO TID Citalopram Hbr (Citalopram Hydrobromide) 20 Mg Tablet 1 Tab PO DAILY Pred Forte (Prednisolone Acetate) 1 Ml Drops.susp 1 Drop OU QID PRN Novolog Flexpen (Insulin Aspart) 100 Unit/1 Ml Insuln.pen 12 Unit SQ TIDAC Meclizine Hcl 12.5 Mg Tablet 1 Tab PO TID PRN Atorvastatin Calcium 20 Mg Tablet 20 Mg PO HS Levemir (Insulin Detemir) 100 Unit/1 Ml Vial 24 Unit SQ HS Norvasc (Amlodipine Besylate) 10 Mg Tablet 1 Tab PO DAILY Lisinopril 20 Mg Tablet 1 Tab PO DAILY Vitals/I & O Vital Sign - Last 24 Hours 04/01/17 04/01/17 04/01/17 04/01/17 11:00 15:00 19:23 19:24 Temp 98.8 99.0 98.9 98.8 99.0 98.9 Pulse 76 82 83 83 Resp 18 18 16 B/P (MAP) 137/62 (87) 173/73 (106) 192/80 192/80 (117) Pulse Ox 89 92 92 O2 Delivery Nasal Cannula Nasal Cannula Nasal Cannula O2 Flow Rate 3.0 3.0 2.0 04/01/17 04/01/17 04/02/17 04/02/17 20:00 23:03 03:00 03:32 Temp 97.9 98.4 97.9 98.4 Pulse 75 90 91 Resp 20 20 20 B/P (MAP) 174/82 (112) 176/83 (114) 182/83 (116) Pulse Ox 93 92 93 O2 Delivery Nasal Cannula Nasal Cannula Nasal Cannula Nasal Cannula O2 Flow Rate 2.0 2.0 2.0 2.0 5/04/02/17 04/02/17 04/02/17 07:00 08:00 09:40 09:40 Temp 98.2 98.2 Pulse 90 90 90 Resp 26 B/P (MAP) 189/86 (120) 189/86 189/86 Pulse Ox 90 O2 Delivery Nasal Cannula Nasal Cannula O2 Flow Rate 3.0 4.0 04/02/17 10:28 Temp 98.4 98.4 Pulse 84 Resp 24 B/P (MAP) 180/84 (116) Pulse Ox 93 O2 Delivery Nasal Cannula O2 Flow Rate 4.0 ZULEYMA BRUCE MD April 02, 2017 10:56
[2017-04-02] MEDS ORDERED: FUROSEMIDE 80 MG TABLET. PO SCH (11:00)
[2017-04-02] MEDS: ENOXAPARIN 30 MG/0.3 ML SYRINGE. SQ SCH (11:00)
--- NOTE | 2017-04-02 11:41 | PDOC ---
Subjective: Subjective: Some "side" soreness. Eating well w/o n/v. No BM for a few days. Objective: Objective: D/w RN - has been receiving Miralax QD, last BM 03/29. Vital Signs: Vital Signs Date Time Temp Pulse Resp B/P (MAP) Pulse Ox O2 Delivery O2 Flow Rate FiO2 04/02/17 10:28 98.4 84 24 180/84 (116) 93 Nasal Cannula 4.0 98.4 Labs: Laboratory Tests Test 04/01/17 15:59 04/01/17 16:41 04/01/17 20:47 04/02/17 03:52 Glucose (Fingerstick) 59 mg/dL 92 mg/dL 164 mg/dL 89 mg/dL Test 04/02/17 04:15 04/02/17 07:19 04/02/17 08:47 04/02/17 10:59 White Blood Count 10.0 x10^3/uL Red Blood Count 2.86 x10^6/uL Hemoglobin 8.5 g/dL Hematocrit 25.4 % Mean Corpuscular Volume 89 fL Mean Corpuscular Hemoglobin 30 pg Mean Corpuscular Hemoglobin Concent 34 g/dL Red Cell Distribution Width 13.5 % Platelet Count 230 x10^3/uL Neutrophils (%) (Auto) 63 % Lymphocytes (%) (Auto) 27 % Monocytes (%) (Auto) 7 % Eosinophils (%) (Auto) 2 % Basophils (%) (Auto) 1 % Neutrophils # (Auto) 6.3 x10^3uL Lymphocytes # (Auto) 2.7 x10^3/uL Monocytes # (Auto) 0.7 x10^3/uL Eosinophils # (Auto) 0.2 x10^3/uL Basophils # (Auto) 0.1 x10^3/uL Sodium Level 145 mmol/L Potassium Level 3.8 mmol/L Chloride Level 110 mmol/L Carbon Dioxide Level 21 mmol/L Anion Gap 14 Blood Urea Nitrogen 36 mg/dL Creatinine 3.0 mg/dL Estimated GFR (Cockcroft-Gault) 15.7 Glucose Level 89 mg/dL Calcium Level 8.6 mg/dL Phosphorus Level 4.1 mg/dL Magnesium Level 1.9 mg/dL Albumin 3.1 g/dL Glucose (Fingerstick) 54 mg/dL 71 mg/dL 122 mg/dL PE: GEN: NAD LUNGS: CTAB HEART: RRR ABD: NABS, S/ND/NT NEURO/PSYCH: A & O 3 A/P: Constipation -despite Miralax QD N/v - resolved -h/o GERD, h/o DM, on H2 jas MYAH/CKD -- Increase Miralax to BID. Outpt colonoscopy. AYLEEN RICE April 02, 2017 11:41
--- NOTE | 2017-04-02 11:58 | PDOC ---
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 Head CT noted as below; appetite remains marginal CVS: no Orthopnea, no CP RESP: no SOB, no PETER GI: nno Nausea, no Vomiting : no Dysuria, no Urgency OBJECTIVE Vital Signs Vital Signs Date Time Temp Pulse Resp B/P (MAP) Pulse Ox O2 Delivery O2 Flow Rate FiO2 04/02/17 10:28 98.4 84 24 180/84 (116) 93 Nasal Cannula 4.0 98.4 I & 0 Intake and Output 04/02/17 06:59 # Voids 6 PHYSICAL EXAM Physical Exam General Appearance: Awake Alert Oriented x 2- 3 In no Distress Eyes: Ch Blindness (legal) Conjunctiva Normal EN: No EN Drainage Mucous Memb. moist Neck: no JVD min JVP Supple no Thyromegaly CVS: S1 S2 + Murmur No Gallop No Rub +2 Edema Resp: no Rales no Rhonchi no Acc. Muscle use GI: BS +ve NO Bruit Non Tender Non Distended; Obese : no CVA tenderness; no Suprapubic Tenderness Neuroa No asterixis per se Assessment & Plan MYAH - also noted creat of 2.79 at [facility] in January. Baseline Creat NA from PCP office yet. Current FLuid and E-lyte status does not necessitate emergent need for Dialysis. Will re-evaluate for Dialysis in am - Pt is not keen on HD currently. UO is not well recorded, Pt refusing brice and dialysis currently. SOB (Symtomatically better) - IV Lasix given yest. CXR as ordered yest is not yet read; my reading of CXR reveals Chon R >L Pl eff. so will ct IV Lasix CKD III/ IV - DM/ HTNsive / NS cannot be ruled out; 24-hr Urine collection as done - await results Pl Eff - IV lasix as ordered. No I/Os avail due to lack of brice SEv Hypoalbuminemia - ? nephrotic range proteinuria - await 24-hr Urine Anemia: OK on Iron; Transfuse as needed. for hgb < 7; start EPO sev HTN: (OA) - now better controlled. Current BP meds reviewed. See orders for changes. Bone & Mineral: Check Vit D for ^ed PTH Edema - suspect due to Low Alb, Hepatitis panel noted (suspect prior Vx); IV Alb with Lasix DM-2 with terminal operations manager insulin use - with DR (high likelihood of DM-2 Nephropathy ) COMMENT/RELEVANT DATA Meds Current Medications Medications (Trade) Dose Ordered Sig/Roshan Start Time Stop Time Status Last Admin Dose Admin Acetaminophen (Tylenol) 650 mg PRN Q6HRS PRN 03/30/17 11:45 04/02/17 04:42 650 MG Albumin Human 100 ml @ 100 mls/hr TID 03/31/17 14:00 04/02/17 09:59 DC 04/01/17 21:50 100 MLS/HR Amlodipine Besylate (Norvasc) 10 mg DAILY 03/30/17 09:00 04/02/17 09:40 10 MG Amoxicillin/ Clavulanate Potassium (Augmentin 500/ 125mg) 1 tab BID 03/30/17 11:00 04/02/17 09:39 1 TAB Aspirin (Children'S Aspirin) 81 mg [id number] 03/31/17 08:00 UNV Aspirin (Ecotrin) 325 mg DAILYWBKFT 03/30/17 12:00 04/01/17 12:05 325 MG Atorvastatin Calcium (Lipitor) 20 mg HS 03/30/17 21:00 04/01/17 21:52 20 MG Brimonidine Tartrate (Alphagan) 1 drop BID 03/30/17 10:00 04/02/17 09:48 1 DROP Cefazolin Sodium (Ancef Im) 1 gm 1X ONCE 03/30/17 02:00 03/30/17 02:01 DC 03/30/17 01:30 1 GM Cefazolin Sodium 1 gm/Sodium Chloride 50 ml @ 100 mls/hr Q8HRS 03/30/17 06:00 03/30/17 10:24 DC 03/30/17 07:26 100 MLS/HR Citalopram Hydrobromide (CeleXA) 20 mg DAILY 03/30/17 09:00 04/02/17 09:39 20 MG Darbepoetin Rogelio (Aranesp) 60 mcg We 03/31/17 21:00 03/31/17 21:31 60 MCG Dexamethasone (Maxidex) 1 drop PRN QID PRN 03/30/17 10:00 03/31/17 08:11 1 DROP Dextrose (Dextrose 50%-Water Syringe) 12.5 gm PRN Q15MIN PRN 03/30/17 09:15 Diphenhydramine HCl (Benadryl) 25 mg 1X ONCE 03/30/17 07:00 03/30/17 07:01 DC 03/30/17 08:16 25 MG Docusate Sodium (Colace) 100 mg PRN DAILY PRN 03/31/17 10:15 Enoxaparin Sodium (Lovenox 30mg Syringe) 30 mg Q24H 03/30/17 11:00 04/01/17 12:11 30 MG Enoxaparin Sodium (Lovenox Per Pharmacy Prophylaxis Dosing) 1 each PRN DAILY PRN 03/30/17 10:00 Famotidine (Pepcid) 20 mg QHS 03/30/17 21:00 04/01/17 21:52 20 MG Furosemide (Lasix) 80 mg DAILY 04/02/17 11:00 Gabapentin (Neurontin) 100 mg QHS 03/30/17 14:00 04/01/17 21:52 100 MG Hydralazine HCl (Apresoline) 50 mg QIDPRN PRN 04/01/17 09:00 04/01/17 19:23 50 MG Hydromorphone HCl (Dilaudid) 1 mg 1X ONCE 03/30/17 02:00 03/30/17 02:01 DC 03/30/17 01:29 1 MG Insulin Aspart (NovoLOG) 9 units TIDAC 04/02/17 11:30 Insulin Detemir (Levemir) 17 units QHS 04/02/17 21:00 Lisinopril (Prinivil) 40 mg DAILY 03/31/17 12:00 04/02/17 09:40 40 MG Magnesium Sulfate/ Dextrose 100 ml @ 100 mls/hr 1X ONCE 03/31/17 09:00 03/31/17 09:59 DC 03/31/17 09:27 100 MLS/HR Meclizine HCl (Antivert) 12.5 mg PRN TID PRN 03/30/17 08:15 Metformin HCl (Glucophage Xr) 500 mg DAILYWBKFT 03/30/17 09:00 03/30/17 09:47 DC Metoclopramide HCl (Reglan) 10 mg 1X ONCE 03/30/17 04:00 03/30/17 04:01 DC 03/30/17 03:25 10 MG Ondansetron HCl (Zofran Odt) 4 mg 1X ONCE 03/30/17 02:30 03/30/17 02:31 DC 03/30/17 02:13 4 MG Ondansetron HCl (Zofran) 8 mg PRN Q8HRS PRN 03/30/17 08:15 Polyethylene Glycol (miraLAX PACKET) 17 gm BID 04/02/17 21:00 Potassium Chloride (Klor-Con) 40 meq 1X ONCE 03/31/17 11:30 03/31/17 11:31 DC 03/31/17 13:57 40 MEQ Pregabalin (Lyrica) 100 mg BID 03/30/17 09:00 04/02/17 09:40 100 MG Prochlorperazine Edisylate (Compazine) 10 mg 1X ONCE 03/30/17 07:00 03/30/17 07:01 DC 03/30/17 08:15 10 MG Sodium Bicarbonate (Sodium Bicarbonate) 1,300 mg BID 04/01/17 12:00 04/02/17 09:41 1,300 MG Sodium Chloride 1,000 ml @ 100 mls/hr Q10H 03/30/17 09:15 03/31/17 11:25 DC 03/31/17 05:30 100 MLS/HR Timolol Maleate (Timoptic 0.5% Ophth) 1 drop BID 03/30/17 10:00 04/02/17 09:48 1 DROP Zolpidem Tartrate (Ambien) 5 mg 1X ONCE 04/01/17 20:45 04/01/17 20:46 DC 04/01/17 21:50 5 MG Lab Laboratory Tests Test 04/01/17 15:59 04/01/17 16:41 04/01/17 20:47 04/02/17 03:52 Glucose (Fingerstick) 59 mg/dL (70-99) 92 mg/dL (70-99) 164 mg/dL (70-99) 89 mg/dL (70-99) Test 04/02/17 04:15 04/02/17 07:19 04/02/17 08:47 04/02/17 10:59 White Blood Count 10.0 x10^3/uL (4.0-11.0) Red Blood Count 2.86 x10^6/uL (3.50-5.40) Hemoglobin 8.5 g/dL (12.0-15.5) Hematocrit 25.4 % (36.0-47.0) Mean Corpuscular Volume 89 fL (79-100) Mean Corpuscular Hemoglobin 30 pg (25-35) Mean Corpuscular Hemoglobin Concent 34 g/dL (31-37) Red Cell Distribution Width 13.5 % (11.5-14.5) Platelet Count 230 x10^3/uL (140-400) Neutrophils (%) (Auto) 63 % (31-73) Lymphocytes (%) (Auto) 27 % (24-48) Monocytes (%) (Auto) 7 % (0-9) Eosinophils (%) (Auto) 2 % (0-3) Basophils (%) (Auto) 1 % (0-3) Neutrophils # (Auto) 6.3 x10^3uL (1.8-7.7) Lymphocytes # (Auto) 2.7 x10^3/uL (1.0-4.8) Monocytes # (Auto) 0.7 x10^3/uL (0.0-1.1) Eosinophils # (Auto) 0.2 x10^3/uL (0.0-0.7) Basophils # (Auto) 0.1 x10^3/uL (0.0-0.2) Sodium Level 145 mmol/L (136-145) Potassium Level 3.8 mmol/L (3.5-5.1) Chloride Level 110 mmol/L (98-107) Carbon Dioxide Level 21 mmol/L (21-32) Anion Gap 14 (6-14) Blood Urea Nitrogen 36 mg/dL (7-20) Creatinine 3.0 mg/dL (0.6-1.0) Estimated GFR (Cockcroft-Gault) 15.7 Glucose Level 89 mg/dL (70-99) Calcium Level 8.6 mg/dL (8.5-10.1) Phosphorus Level 4.1 mg/dL (2.6-4.7) Magnesium Level 1.9 mg/dL (1.8-2.4) Albumin 3.1 g/dL (3.4-5.0) Glucose (Fingerstick) 54 mg/dL (70-99) 71 mg/dL (70-99) 122 mg/dL (70-99) Other No acute intracranial hemorrhage. Regions of low attenuation of the white matter. Nonspecific but frequently secondary to small vessel ischemic disease although sequela of migraine or demyelination also in differential. This is more than commonly seen for the patient's age. Would consider a follow-up MRI with and without intravenous contrast to further evaluate and to ensure that none of this is secondary to regions of edema from causes such as a mass. Partial opacification a partially seen right maxillary sinus. Could be from sinus congestion or sinusitis. DAVID REY MD April 02, 2017 11:58
[2017-04-02] MEDS: ASPIRIN ENTERIC COATED 325 MG TABLET.DR. PO SCH (12:07)
[2017-04-02] MEDS ORDERED: SPIRONOLACTONE 25 MG TABLET PO SCH (13:00)
[2017-04-02 13:22] LABS: TOTAL SERUM CREATININE 2.7 mg/dL (0.57-1.00)
[2017-04-02] MEDS ORDERED: HEPARIN for IV BOLUS 10,000 UNIT/10 ML VIAL. ONE (13:26)
[2017-04-02] MEDS ORDERED: LIDOCAINE 1% / SOD BICARB 8.4% 20 ML VIAL. IJ ONE (13:26)
[2017-04-02] MEDS ORDERED: POLYETHYLENE GLYCOL 3350 17 GM PACKET. PO SCH (21:00)
[2017-04-02] MEDS ORDERED: INSULIN DETEMIR 300 UNITS/3 ML INSULN.PEN. SQ SCH (21:00)
[2017-04-02] MEDS: ATORVASTATIN CALCIUM 20 MG TABLET PO SCH (21:18)
[2017-04-02] MEDS: FAMOTIDINE 20 MG TABLET. PO SCH (21:18)
[2017-04-02] MEDS: GABAPENTIN 100 MG CAPSULE. PO SCH (21:18)
== END 2017-04-02 23:22 | DRG 682 ==
LOC: ER 23:43 → 4 NORTH 03-30 05:29
PROVIDERS: ADMIT Internal Medicine Hematology & Oncology; ATTEND Internal Medicine Hematology & Oncology
DX: N17.0 Acute kidney failure with tubular necrosis (principal); E43 Unspecified severe protein-calorie malnutrition; L03.211 Cellulitis of face; I13.0 Hypertensive heart and chronic kidney disease with heart failure and stage 1 through stage 4 chronic kidney disease, or unspecified chronic kidney disease; N18.4 Chronic kidney disease, stage 4 (severe); D63.1 Anemia in chronic kidney disease; E11.22 Type 2 diabetes mellitus with diabetic chronic kidney disease; E11.319 Type 2 diabetes mellitus with unspecified diabetic retinopathy without macular edema; E11.43 Type 2 diabetes mellitus with diabetic autonomic (poly)neuropathy; E11.65 Type 2 diabetes mellitus with hyperglycemia; E78.5 Hyperlipidemia, unspecified; F32.9 Major depressive disorder, single episode, unspecified; H35.30 Unspecified macular degeneration; H54.8 Legal blindness, as defined in USA; I50.9 Heart failure, unspecified; K04.7 Periapical abscess without sinus; K21.9 Gastro-esophageal reflux disease without esophagitis; K31.84 Gastroparesis; K59.00 Constipation, unspecified; E66.09 Other obesity due to excess calories; W19.XXXA Unspecified fall, initial encounter; Z68.30 Body mass index [BMI] 30.0-30.9, adult; Z82.49 Family history of ischemic heart disease and other diseases of the circulatory system; Z83.3 Family history of diabetes mellitus; Z86.73 Personal history of transient ischemic attack (TIA), and cerebral infarction without residual deficits; Z87.440 Personal history of urinary (tract) infections; Z88.2 Allergy status to sulfonamides; Z90.710 Acquired absence of both cervix and uterus; Z88.8 Allergy status to other drugs, medicaments and biological substances; J32.9 Chronic sinusitis, unspecified
CPT/HCPCS: 36415; 70450; 71020; 76770; 80053; 80069; 80074; 81001; 82306; 82550; 82575; 82728; 82947; 83036; 83540; 83550; 83735; 83970; 84156; 84300; 85007; 85018; 85027; 85045; 86704; 86706; 87040; 87641; 93306; 96361; 96372; 96374; 96375; J0690; J0780; J0881; J1170; J1200; J1650; J1815; J1940; J2405; J2765; J3475; J7030; P9046; Q0162; 99285-25